=== PATIENT | female | born 1965 | race Caucasian/White ===

== ENCOUNTER 2016-07-14 00:07 | Inpatient (IN) ==
[2016-07-14 00:38] LABS: Basophils % 0.4 %; Eosinophils # 0.1 K/mcL (0.0-0.6); Eosinophils % 0.8 %; Hematocrit 38.7 % (35.3-44.9); Hemoglobin 12.8 g/dL (11.5-15.4); Immature Granulocytes % 0.4 % (0-4); Lymphocytes # 0.7 K/mcL (0.6-4.6); Lymphocytes % 8.1 %; Mean Corpuscular HGB Conc 33.1 g/dL (31.6-35.5); Mean Corpuscular Hemoglobin 27.2 pg (28.0-33.3); Mean Corpuscular Volume 82.2 fL (83.0-100.0); Mean Platelet Volume 10.3 fL (9.4-12.4); Monocytes # 0.7 K/mcL (0.0-1.3); Monocytes % 7.8 %; Platelet Count 215 K/mcL (140-400); Red Blood Count 4.71 M/mcL (3.82-4.97); Red Cell Distribution Width 13.2 % (11.5-14.5); Segmented Neutrophils % 82.5 %
[2016-07-14 00:44] LABS: INR 1.2; Prothrombin Time 12.9 Seconds (9.4-12.1)
[2016-07-14 00:47] LABS: Activated Partial Thrombo Time 18.7 Seconds (26.0-36.0)
--- NOTE | 2016-07-14 00:48 | Emergency Department Note ---
Disposition Clinical Impression: Chest pain Qualifiers: Chest pain type: unspecified Qualified Code(s): R07.9 - Chest pain, unspecified Disposition: Admitted As Inpatient Condition: Good Referrals: Antonietta Busch CNP [Primary Care Provider] - Forms: ED Satisfaction Letter Time of Disposition: 00:49 General Adult HPI - General Chief complaint: ED Chest Pain Stated complaint: CP Time Seen by Provider: 07/14/16 00:15 Source: patient Limitations: no limitations Nursing Notes Reviewed: Yes Vital Signs Reviewed: Yes - History of Present Illness HPI Narrative: Subjective fever today. Exertional chest pain or shortness of breath over a week. No vomiting or diarrhea. She is for urinary tract infection weaker. No abdominal pain to palpation at this time. No flank pain. Stress test in the fall was unremarkable. Pain in her chest abdomen radiating to her left shoulder with exertion. No pain at the time of my evaluation Location: chest Radiation: extremity Pain Severity: mild Pain Scale: 2 Quality: aching Consistency: intermittent Improves with: nothing Worsens with: nothing Associated symptoms: Reports: chest pain. Denies: confusion, diaphoresis, nausea/vomiting - Related Data Home Medications Medication Instructions Recorded Confirmed Amlodipine Besylate 10 mg PO DAILY 07/04/16 07/04/16 Amoxicillin [Amoxil] 500 mg PO 1-3XD 07/04/16 07/04/16 Hydrochlorothiazide 25 mg PO DAILY 07/04/16 07/04/16 Metoprolol Tartrate 50 mg PO 1-2XD 07/04/16 07/04/16 Previous Rx's Medication Instructions Recorded Sulfamethoxazole/Trimeth DS 1 each PO BID #20 tablet 07/04/16 [Bactrim DS] Allergies Allergy/AdvReac Type Severity Reaction Status Date / Time dexamethasone [From Decadron] Allergy Anaphylaxis Verified 07/04/16 21:03 Constitutional: Denies: fever, chills, weakness, weight change Eyes: Denies: eye pain, eye discharge, vision change ENT ED: Denies: ear pain, throat pain, dental pain, hearing loss, epistaxis, congestion, dysphagia Cardiovascular: Reports: chest pain Respiratory: Reports: dyspnea Gastrointestinal: Denies: abdominal pain, nausea, vomiting, diarrhea, constipation, hematemesis, melena, hematochezia Genitourinary: Denies: dysuria, frequency, hematuria, discharge Musculoskeletal: Denies: back pain, neck pain, arthralgia, myalgia Integumentary: Denies: rash, abrasion, lesions Neurological: Denies: headache, weakness, numbness, paresthesias, confusion, abnormal gait, vertigo Psychiatric: Denies: anxiety, depression, suicidal thoughts, homicidal thoughts , auditory hallucinations, visual hallucinations Endocrine: Denies: fatigue Hematological/Lymphatic: Denies: easy bleeding, easy bruising Allergic/Immunologic: Denies: facial swelling, urticaria Past Medical History - Past Medical History Medical history: Reports: hypertension Psychiatric history: Reports: anxiety, depression [employer] history: Reports: bilateral tubal ligation - Social History Smoking Status: Never smoker Smokeless Tobacco Status: No Alcohol use: Reports: none Drug use: Reports: none Physical Exam - General Limitations: no limitations General appearance: alert - Respiratory Respiratory exam: Present: wheezes. Absent: respiratory distress - Psychiatric Psychiatric exam: Present: anxious. Absent: agitated Course Course Narrative: No pain on admission, hr improved; no dynamic ekg changes; urinalysis ordered Accepting physician evaluated pt in the ER prior to admission Vital Signs Temperature 100.2 F H 07/14/16 00:10 Pulse Rate 115 07/14/16 00:10 Respiratory Rate 16 07/14/16 00:10 Blood Pressure 135/99 07/14/16 00:10 O2 Sat by Pulse Oximetry 96 07/14/16 00:10 Temperature 100.2 F H 07/14/16 00:10 Pulse Rate 109 07/14/16 01:05 Respiratory Rate 16 07/14/16 00:10 Blood Pressure 130/78 07/14/16 01:05 O2 Sat by Pulse Oximetry 96 07/14/16 01:05 Oxygen Delivery Oxygen Delivery Room Air Medical Decision Making - Lab Data Result diagrams: 07/14/16 00:30 07/14/16 00:30 Lab Results 07/14/16 07/14/16 07/14/16 Range/Units 00:30 00:30 00:30 WBC 8.5 (4.3-11.1) K/mcL RBC 4.71 (3.82-4.97) M/mcL Hgb 12.8 (11.5-15.4) g/dL Hct 38.7 (35.3-44.9) % MCV 82.2 L (83.0-100.0) fL MCH 27.2 L (28.0-33.3) pg MCHC 33.1 (31.6-35.5) g/dL RDW 13.2 (11.5-14.5) % Plt Count 215 (140-400) K/mcL MPV 10.3 (9.4-12.4) fL Immature Gran % 0.4 (0-4) % Seg Neutrophils % 82.5 % Lymphocytes % 8.1 % Monocytes % 7.8 % Eosinophils % 0.8 % Basophils % 0.4 % Neutrophils # 7.0 (1.6-8.9) K/mcL Lymphocytes # 0.7 (0.6-4.6) K/mcL Monocytes # 0.7 (0.0-1.3) K/mcL Eosinophils # 0.1 (0.0-0.6) K/mcL Basophils # 0.0 (0.0-0.2) K/mcL PT 12.9 H (9.4-12.1) Seconds INR 1.2 APTT 18.7 L (26.0-36.0) Seconds Sodium (136-145) mEq/L Potassium (3.5-4.5) mEq/L Chloride (98-109) mEq/L Carbon Dioxide (19-29) mEq/L BUN (7-20) mg/dL Creatinine (0.57-1.11) mg/dL Est GFR ( Amer) (> 60) Est GFR (Non-Af Amer) (> 60) BUN/Creatinine Ratio (6-26) Glucose (70-99) mg/dL Calculated Osmolality (280-300) Calcium (8.6-10.8) mg/dL Troponin I (0-0.03) ng/mL B-Natriuretic Peptide 58 (0-100) pg/mL 07/14/16 07/14/16 Range/Units 00:30 00:30 WBC (4.3-11.1) K/mcL RBC (3.82-4.97) M/mcL Hgb (11.5-15.4) g/dL Hct (35.3-44.9) % MCV (83.0-100.0) fL MCH (28.0-33.3) pg MCHC (31.6-35.5) g/dL RDW (11.5-14.5) % Plt Count (140-400) K/mcL MPV (9.4-12.4) fL Immature Gran % (0-4) % Seg Neutrophils % % Lymphocytes % % Monocytes % % Eosinophils % % Basophils % % Neutrophils # (1.6-8.9) K/mcL Lymphocytes # (0.6-4.6) K/mcL Monocytes # (0.0-1.3) K/mcL Eosinophils # (0.0-0.6) K/mcL Basophils # (0.0-0.2) K/mcL PT (9.4-12.1) Seconds INR APTT (26.0-36.0) Seconds Sodium 137 (136-145) mEq/L Potassium 3.8 (3.5-4.5) mEq/L Chloride 105 (98-109) mEq/L Carbon Dioxide 21 (19-29) mEq/L BUN 20 (7-20) mg/dL Creatinine 1.22 H (0.57-1.11) mg/dL Est GFR ( Amer) 57 L (> 60) Est GFR (Non-Af Amer) 47 L (> 60) BUN/Creatinine Ratio 16 (6-26) Glucose 130 H (70-99) mg/dL Calculated Osmolality 288 (280-300) Calcium 9.5 (8.6-10.8) mg/dL Troponin I 0.05 H* (0-0.03) ng/mL B-Natriuretic Peptide (0-100) pg/mL - EKG Data EKG #1 EKG attestation: Yes I reviewed and interpreted this EKG. EKG results narrative: Normal sinus rhythm. No acute injury pattern. Nonspecific changes noted on today's EKG and prior EKG from leads V5 and V6.
[2016-07-14 00:54] LABS: Calcium 9.5 mg/dL (8.6-10.8); Potassium 3.8 mEq/L (3.5-4.5)
[2016-07-14] MEDS ORDERED: Aspirin 325 MG TABLET PO ONE (01:07)
[2016-07-14] MEDS ORDERED: Ondansetron 4 MG/2 ML VIAL IVP PRN (04:48)
[2016-07-14] MEDS ORDERED: *HR* Morphine 2 MG/ML SYRINGE IVP PRN (04:48)
[2016-07-14] MEDS ORDERED: Nitroglycerin 0.4 MG TAB.SUBL SL PRN (04:48)
--- NOTE | 2016-07-14 04:48 | Event Note ---
Date of Encounter: 07/14/16 Time of Encounter: 04:42 Patient seen and examined with a medical office asst. Agree with the assessment and plan. Patients with risk factors for coronary artery disease including a very strong family history of premature coronary disease mother had cabg at the age of 40 presents to the emergency room today with one week of typical anginal chest pain. Pain occurs with exertion forcing her to stop after which patient start noticing relief within a few minutes. Tonight she had a prolonged episode pain lasting for 2 hours prompting her to come to the emergency room further management. Her electrocardiogram shows .[address] segment depression. Initial troponin all .05. She had evaluation for coronary disease 5 month ago because of enter scapular pain. Patient will need to coronary angiogram to load coronary artery disease. With as disability counselor service to see the patient. Patient will be started on anti-ischemic medications including aspirin beta blockers to target the heart rate of 55 to 60 , in addition to full dose anticoagulation with heparin. Patient was recently diagnosed with a urinary tract infection a week ago and was having Donald hematuria. This has resolved after initiating antibiotics. She has been on Bactrim for one week. Hematuria stopped a day after initiating antibiotics. Still has some urinary symptoms in addition to fever. Tmax was 100.2 in the emergency room. Check your analysis on culture. Patient will be started on ceftriaxone. She is having pain in the right side of the abdomen but no loin pain. CT scanner with abdomen and pelvis without contrast will be performed tomorrow to rule out obstructive uropathy. Till election monitoring inpatient admission focal
[2016-07-14] MEDS ORDERED: *HR* Heparin 5,000 UNIT/ML VIAL IVP ONE (05:00)
[2016-07-14] MEDS ORDERED: *HR* Heparin 5,000 UNIT/ML VIAL IVP PRN ×2 (05:00)
[2016-07-14] MEDS ORDERED: Heparin 25,000 UNIT/500 ML D5W 25,000 UNIT/500 ML MLS IVC SCH (05:00)
--- NOTE | 2016-07-14 05:24 | Internal Med History&Physical ---
Date of Encounter: 07/14/16 Time of Encounter: 15:00 Assessment and Plan (1) NSTEMI (non-ST elevated myocardial infarction) Current visit: Yes Status: Acute Patient presents with typical Anginal chest pain relieved with rest, ASA, and nitroglycerin. Has strong family history of heart disease. EKG reviewed: shows sinus tachycardia with .5mm ST depression in inferolateral leads. MARCE score: 4: initial troponin: .05- will trend Q6HR Patient placed on Heparin drip. Started ASA, statin, BB, morphine, SL nitroglycerin PRN Lipid panel pending. Repeat EKG in morning. Patient is NPO except meds in case of cardiology interventions. Consult to cardiology. (2) Chest pain Current visit: Yes Status: Acute plan as above. Qualifiers: Chest pain type: chest pain due to myocardial ischemia Ischemic chest pain type: stable angina pectoris Qualified Code(s): I20.8 - Other forms of angina pectoris (3) PERRI (acute kidney injury) Current visit: Yes Status: Acute Patient's Cr today measured at 1.22. Baseline is normal. Patient states that about a week ago, she had lower abdominal pain with blood clots in her urine. Was diagnosed on UTI, put on bactrim. Physical exam negative for lower abdominal or costovertebral tenderness. Etiology could be multifactorial from UTI- consider obstructive uropathy secondary to kidney stones as well. Urinalysis with culture pending. Will empirically treat with ceftriaxone 1g Qday. CT abdomen/pelvis without contrast pending to look for stones or obstructive uropathy. infusing 1L total normal saline at 80 ml/hr COntinue to monitor. Avoid nephrotoxic agents. hold HCTZ. (4) UTI (urinary tract infection) Current visit: Yes Status: Acute plan as above Qualifiers: Urinary tract infection type: site unspecified Hematuria presence: with hematuria Qualified Code(s): N39.0 - Urinary tract infection, site not specified; R31.9 - Hematuria, unspecified (5) Hematuria Current visit: Yes Status: Acute plan as above. (6) HTN (hypertension) Current visit: Yes Status: Acute continue HCTZ, amlodipine once home med list confirmed. Qualifiers: Hypertension type: essential hypertension Qualified Code(s): I10 - Essential (primary) hypertension (7) HLD (hyperlipidemia) Current visit: Yes Status: Acute statin Qualifiers: Hyperlipidemia type: unspecified Qualified Code(s): E78.5 - Hyperlipidemia , unspecified (8) DVT prophylaxis Current visit: Yes Status: Acute Heparin Drip Internal Medicine - H&P: HPI Chief complaint: chest pain Admitted From: Emergency Dept Plans for Post Hospital Care: Home History of present illness: PCP: Antonietta Busch Ms. Kunz is a 50 year old female with PMHx of HLD, HTN. Patient came in with CC of typical anginal chest pain that started about one week ago. She also feels like she has a lot of pressure in her chest. She never had anything like this before. She rates the pain as 10/10, and her pain is located in mid-chest, as well as left shoulder pain. 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 Going from inside to the cold weather outside causes her to have pain as well. Her pain is relieved when she sits down to rest. When she called the squad, she received 4 aspirin 2 nitroglycerin, and her pain went from 10/10 to 2/10. Upon examination, she was chest pain free. She has a strong family Hx of heart disease, her mother had her first MO at age 40 and had bypass surgery at that time, she also had carotid stent placement. Patient also states that she had symptoms of a UTI that started about 1 week ago with gross blood clots when she urinates. Her doctor started her on bactrim for the UTI. She denies any history of kidney stones. Family History: mother is alive, had MO at 40 with bypass. Also had carotid stent placement. Dad is alive, has HTN, COPD Social Hx: Lives at home with her and son. Doesn't smoke or drink. Denies illicit drug use. Surgical Hx: had tubal ligation 22 years ago. Had hysteroscopy for endometriosis about 20 years ago. Past Med Surg Social Fam HX - Past Medical History Medical history: hypertension Psychiatric history: anxiety, depression - Social History Smoking Status: Never smoker Smokeless Tobacco Status: No Alcohol use: none Drug use: none Internal Medicine - H&P: Meds Amlodipine Besylate 10 mg PO DAILY 07/04/16 [History] Amoxicillin [Amoxil] 500 mg PO 1-3XD 07/04/16 [History] Hydrochlorothiazide 25 mg PO DAILY 07/04/16 [History] Metoprolol Tartrate 50 mg PO 1-2XD 07/04/16 [History] Sulfamethoxazole/Trimeth DS [Bactrim DS] 1 each PO BID #20 tablet 07/04/16 [Rx] Allergies dexamethasone [From Decadron] Allergy (Verified 07/04/16 21:03) Anaphylaxis All Systems PM: A 10-system review of systems was performed and is negative for pertinent findings except as documented above in the HPI. - Constitutional Constitutional: chills, fatigue, fever(s), lethargy - EENT Eyes: no blurry vision - Cardiovascular Cardiovascular ROS IM: chest pain, no syncope - Respiratory Respiratory: cough - Gastrointestinal Gastrointestinal: no abdominal pain - Genitourinary Genitourinary: hematuria - Neurological Neurological ROS: no abnormal gait, no abnormal speech - Constitutional Vitals: Temp Pulse Resp BP Pulse Ox 100.2 F H 109 16 130/78 96 07/14/16 00:10 07/14/16 01:05 07/14/16 00:10 07/14/16 01:05 07/14/16 01:05 General appearance: Present: A&O X 3, pleasant, no acute distress, answers questions appropriately - Head Head exam: Present: atraumatic, normocephalic - Neck Neck exam general surgery: Present: supple, trachea midline - Respiratory Respiratory exam: Present: CTAB. Absent: rales, rhonchi, wheezes - Cardiovascular Cardiovascular exam: Present: tachycardia - GI/Abdominal GI/Abdominal exam: Present: normal bowel sounds, soft. Absent: guarding, tenderness - Extremities Exam Extremities exam: Absent: cyanotic, pedal edema - Back Exam Back exam: Absent: CVA tenderness (L), CVA tenderness (R) - Neurological Exam Neurological exam: Present: alert, oriented X3, no focal deficits. Absent: speech deficit - Psychiatric Psychiatric exam: Present: anxious Internal Med - H&P Results - Labs CBC & Chem 7: 07/14/16 00:30 07/14/16 00:30 Labs: Short CBC 07/14/16 Range/Units 00:30 WBC 8.5 (4.3-11.1) K/mcL Hgb 12.8 (11.5-15.4) g/dL Hct 38.7 (35.3-44.9) % Plt Count 215 (140-400) K/mcL Neutrophils # 7.0 (1.6-8.9) K/mcL BMP 07/14/16 00:30 Sodium 137 Potassium 3.8 Chloride 105 Carbon Dioxide 21 BUN 20 Creatinine 1.22 H Glucose 130 H Calcium 9.5 Cardiac Enzymes 07/14/16 Range/Units 00:30 Troponin I 0.05 H* (0-0.03) ng/mL - Impressions ITS Impressions Chest X-Ray 07/14/16 00:21 IMPRESSION: Normal portable chest examination. D/ / Eliazar Gee MD / Eliazar Gee MD Interpreting Provider: Eliazar Gee MD Chest CTA 07/14/16 02:26 IMPRESSION: No evidence of pulmonary embolism or acute pulmonary abnormality. D/ / Crow Ladd MD / Crow Ladd MD Interpreting Provider: Crow Ladd MD
[2016-07-14] MEDS ORDERED: 0.9 % Sodium Chloride 1,000 ML IVC SCH (05:39)
[2016-07-14 06:36] LABS: Bilirubin,Urine Negative (Negative); Blood,Urine Small (Negative); Clarity,Urine Cloudy (Clear); Color,Urine Orange (Yellow); Glucose,Urine (UA) Normal (Normal); Ketones,Urine Negative (Negative); Leukocyte Esterase,Urine Moderate (Negative); Nitrite,Urine Positive (Negative); PH,Urine 6.5 pH Units (5.0-8.0); Protein,Urine 30 mg/dL (Neg-Trace); Specific Gravity,Urine > 1.030 (1.010-1.025); Urobilinogen,Urine Normal (Normal)
[2016-07-14 06:38] LABS: Bacteria,Urine Many per hpf (None-Few); Hyaline Casts,Urine None Seen per lpf (None-Few); RBC,Urine 15-30 per hpf (0-3); Squamous Epithelial Cell,Urine Many per lpf (None-Few); WBC,Urine TNTC per hpf (0-3)
--- NOTE | 2016-07-14 08:52 | Cardiology Consult Note ---
Date of Encounter: 07/14/16 Time of Encounter: 08:52 Assessment and Plan (1) Elevated troponin Current Visit: Yes Status: Acute - mildly elevated troponin 0.05 --> 0.06 in the setting of UTI/PERRI Cr 1.22 - patient is currently chest pain free - risk factors include hypertension and family history of cardiac disease - likely due to demand ischemia but continue to trend troponin and repeat an EKG - continue on low dose heparin - ASA, BB, statin - repeat ECHO (2) PERRI (acute kidney injury) Current Visit: Yes Status: Acute - Cr 1.22, baseline is 1.0 - possibly secondary to UTI or renal stones - continue to monitor and avoid nephrotoxic agents - BP 130s, ok to hold HCTZ (3) HTN (hypertension) Current Visit: Yes Status: Acute - continue home BP medications, BP 130s - HR 80s Qualifiers: Hypertension type: essential hypertension Qualified Code(s): I10 - Essential (primary) hypertension Discussion w patient/family: The assessment and plan as outlined above was discussed with the patient and/or family members who expressed understanding and agreement. All questions were answered. Thank you for involving us in the care of your patient. Please call with any questions. History of Present Illness Consult date: 07/14/16 Requesting physician: Kalpesh Perez Consult reason: CP Chief complaint: CP History of present illness: Ms. Kunz is a 50 year old female with past medical history of hypertension presents to the ED for chest pain. Cardiology consulted for chest pain r/o ACS with mildly elevated troponin 0.05 in setting of UTI. Patient reports midsternal chest pressure that occurred around 2000 last night. Radiation to the left shoulder and scapula. Denies any associated shortness of breath, jaw pain, diaphoresis, or nausea. Pain was relieved after 324 aspirin and 2 nitroglycerin given by EMS. Reports similar episodes throughout the week usually exacerbated with the cold weather outside of lifting things. Describes similar sensation however typically better with rest. Over the past 2 weeks she has been treated with antibiotics and steroid taper for a "head cold" and symptoms began after 4th day of steroids. Also complains of dysuria and hematuria from a UTI. EKG does not reveal any acute ischemic changes. CTA of chest does not reveal dissection or PE. History of normal nuclear stress test and echocardiogram 02/2016. Denies history of cardiac ischemic disease. Family history of OH in mother with bypass and carotid stenting. She denies any tobacco use. Compliant with her home medications but BP sometimes runs high and lately has been feeling her HR jump to the 140s. Denies history of atrial fibrillation or arrhythmias. Important CV studies: - Stress nuclear 02/25/16 - non-diagnostic due to ST-T changes but no signs of ischemia or infarct - TTE echo 02/25/16 - EF 60-65% with normal LV function, without signs of pulmonary HTN or valvular dysfunction - no [facility] Past Med Surg Social Fam HX - Past Medical History Medical history: hypertension Psychiatric history: anxiety, depression - Past Surgical History Surgical History: no surgical history - Social History Smoking Status: Never smoker Smokeless Tobacco Status: No Alcohol use: none Drug use: none - Family History Mother Hx Family Cardiac Disorders: Yes (CARDIAC DISEASE.) Father Hx Family Respiratory Disorders: Yes (COPD.) Medications and Allergies Amlodipine Besylate 10 mg PO DAILY 07/04/16 [History] Hydrochlorothiazide 25 mg PO DAILY 07/04/16 [History] Metoprolol Tartrate 75 mg PO BID 07/04/16 [History] Sulfamethoxazole/Trimeth DS [Bactrim DS] 1 each PO BID #20 tablet 07/04/16 [Rx] Allergies dexamethasone [From Decadron] Allergy (Verified 07/04/16 21:03) Anaphylaxis All Systems Review: A 10-system review of systems was performed and is negative for pertinent findings except as documented above in the HPI. - Constitutional Constitutional: chills, fever(s) (SUBJECTIVE), no fatigue - Cardiovascular Cardiovascular: as per HPI, chest pain with exertion, rapid heart rate, no claudication, no diaphoresis, no dyspnea at rest, no dyspnea on exertion, no lightheadedness, no palpitations - Respiratory Respiratory: no cough, no dyspnea - Genitourinary Genitourinary: dysuria, hematuria Physical Examination Vital Signs, Last 4 Hours Temp Pulse Resp BP Pulse Ox 07/14/16 07:10 98.2 F 81 17 124/79 97 07/14/16 06:50 98.2 F 83 16 130/85 97 07/14/16 05:33 18 142/97 General: Conversant, No Apparent Distress HEENT: Atraumatic, Normocephaly, Mucus Membranes Moist Neck: No JVD, Normal carotid pulses Cardiac: Reg Rate and Rhythm, Normal S1 and S2, No Murmur Lungs: Normal Breath Sounds, No Wheeze, Rales, Rhonchi Neuro: Alert and responsive, No focal deficits noted Abdomen: Soft, Non-Tender Skin: No rashes noted on visualized skin Musculoskeletal: No Chest Wall Tenderness Extremities: No Clubbing, No Cyanosis, No Edema, Normal Pulses Results 07/14/16 00:30 07/14/16 00:30 - Imaging and Cardiology Chest Xray: report reviewed, image reviewed Stress Test: report reviewed Echo: pending, report reviewed - EKG Interpretation EKG results cardiology: personally reviewed, normal ECG, sinus rhythm, no diagnostic ischemia Consult Discharge Plan - Plan Referrals: Antonietta Busch, HORTICULTURAL NURSERY ASSISTANT [Primary Care Provider] -
[2016-07-14] MEDS: Aspirin 81 MG TAB.CHEW PO SCH (08:54)
[2016-07-14 11:40] LABS: Chol/HDL Ratio 5.1 (0-4.9)
--- NOTE | 2016-07-14 15:47 | Urology - Consult Note ---
Date of Encounter: 07/14/16 Time of Encounter: 15:45 - Assessment and Plan (1) Ureteral stone with hydronephrosis Current Visit: Yes Status: Acute Assessment and plan: I suspect that the ureteral stone with hydronephrosis combined with a UTI and potential sepsis is the cause of her elevated troponins and recent illness. She is going to need surgical intervention during this hospitalization. We will attempt a ureteroscopic stone extraction but if there is evidence of purulence or it required significant manipulation to remove the stone a stent will be placed in the stone extraction will be staged. I discussed the case with Dr. Lira. He is still following the patient for the elevated troponins and potential cardiac issues. We discussed her possible need for a cardiac catheter. He is awaiting the final troponin levels and echocardiogram results. If these results are okay may be able to proceed without the need for a cardiac catheter. We will likely proceed with the stone extraction and stent placement tomorrow. Continue IV fluids and antibiotics. (2) UTI (urinary tract infection) Current Visit: Yes Status: Acute Qualifiers: Urinary tract infection type: site unspecified Hematuria presence: with hematuria Qualified Code(s): N39.0 - Urinary tract infection, site not specified; R31.9 - Hematuria, unspecified Urology CN:HPI Consult date: 07/14/16 Reason for consult Urology: Other History of present illness: 50 yo admitted with generalized illness. troponins elevated. gross hematuria. CT scan revealed a 7 mm mid ureteral stone with hydronephrosis. UA +. low grade temps. Past Med Surg Social Fam HX - Past Medical History Medical history: hypertension Psychiatric history: anxiety, depression - Past Surgical History Surgical History: no surgical history - Social History Smoking Status: Never smoker Smokeless Tobacco Status: No Alcohol use: none Drug use: none - Family History Mother Hx Family Cardiac Disorders: Yes (CARDIAC DISEASE.) Father Hx Family Respiratory Disorders: Yes (COPD.) Medications and Allergies Amlodipine Besylate 10 mg PO DAILY 07/04/16 [History] Hydrochlorothiazide 25 mg PO DAILY 07/04/16 [History] Metoprolol Tartrate 75 mg PO BID 07/04/16 [History] Sulfamethoxazole/Trimeth DS [Bactrim DS] 1 each PO BID #20 tablet 07/04/16 [Rx] Allergies dexamethasone [From Decadron] Allergy (Verified 07/04/16 21:03) Anaphylaxis Review of Systems - Constitutional fever(s), malaise - EENT Nose, mouth and throat: no dizziness - Cardiovascular no chest pain - Respiratory no cough - Gastrointestinal abdominal pain, nausea - Genitourinary Genitourinary: hematuria - Musculoskeletal back pain - Integumentary no erythema - Neurological no confusion - Psychiatric no anxiety - Hematologic/Lymphatic easy bleeding - Allergic/Immunologic no throat swelling Exam Initial Vital Signs Temp Pulse Resp BP Pulse Ox 100.2 F H 115 16 135/99 96 07/14/16 00:10 07/14/16 00:10 07/14/16 00:10 07/14/16 00:10 07/14/16 00:10 - General physical appearance Present: well developed, no distress - Eyes Present: PERRL - ENT Present: normal nares - Neck Present: no masses - Respiratory Present: normal respiratory effort - Cardiovascular Cardiovascular exam IM: RRR - Abdomen Abdomen: Present: soft - Integumentary Present: no rash - Neurologic Present: normal coordination. Absent: disoriented, confused - Musculoskeletal Present: normal gait Urology Results - Labs 07/14/16 00:30 07/14/16 00:30 Abnormal lab results MCV 82.2 fL (83.0-100.0) L 07/14/16 00:30 MCH 27.2 pg (28.0-33.3) L 07/14/16 00:30 PT 12.9 Seconds (9.4-12.1) H 07/14/16 00:30 APTT 71.0 Seconds (26.0-36.0) H D 07/14/16 12:41 Creatinine 1.22 mg/dL (0.57-1.11) H 07/14/16 00:30 Est GFR ( Amer) 57 (> 60) L 07/14/16 00:30 Est GFR (Non-Af Amer) 47 (> 60) L 07/14/16 00:30 Glucose 130 mg/dL (70-99) H 07/14/16 00:30 LDL Cholesterol, Calc 136 mg/dL (0-99) H 07/14/16 06:31 HDL Cholesterol 36 mg/dL (40-59) L 07/14/16 06:31 Cholesterol/HDL Ratio 5.1 (0-4.9) H 07/14/16 06:31 Urine Color [place] (Yellow) A 07/14/16 06:15 Urine Clarity Cloudy (Clear) A 07/14/16 06:15 Ur Specific [place] > 1.030 (1.010-1.025) H 07/14/16 06:15 Urine Protein 30 mg/dL (Neg-Trace) H 07/14/16 06:15 Urine Blood Small (Negative) H 07/14/16 06:15 Urine Nitrite Positive (Negative) A 07/14/16 06:15 Ur Leukocyte Esterase Moderate (Negative) H 07/14/16 06:15 Urine Microscopic RBC 15-30 per hpf (0-3) H 07/14/16 06:15 Urine Microscopic WBC TNTC per hpf (0-3) H 07/14/16 06:15 Ur Squamous Epith Cells Many per lpf (None-Few) H 07/14/16 06:15 Urine Bacteria Many per hpf (None-Few) H 07/14/16 06:15 Ur Culture Indicated? YES (NO) A 07/14/16 06:15 Diabetes panel 07/14/16 Range/Units 06:31 Triglycerides 63 (< 150) mg/dL HDL Cholesterol 36 L (40-59) mg/dL All other labs normal. Consult Discharge Plan - Plan Referrals: Antonietta Busch, MELECIO [Primary Care Provider] -
--- NOTE | 2016-07-14 16:00 | Internal Med Progress Note ---
Date of Encounter: 07/14/16 Time of Encounter: 10:00 - Assessment and plan (1) Chest pain Current Visit: Yes Status: Acute Assessment and plan: Patient has a family history of CAD. She has risk factor of hypertension and hyperlipidemia. Need to rule out ACS. First of 2 troponin positive. However, the third troponin trended down. Cardiology is on case and recommendation will follow. Patient is at high risk because she is on heparin drip, needed close monitoring. Qualifiers: Chest pain type: chest pain due to myocardial ischemia Ischemic chest pain type: stable angina pectoris Qualified Code(s): I20.8 - Other forms of angina pectoris (2) Elevated troponin Current Visit: Yes Status: Acute Assessment and plan: Cardiology consult saw Patient. Most likely demand ischemia. Troponin trended down now (3) HLD (hyperlipidemia) Current Visit: Yes Status: Acute Assessment and plan: Continue simvastatin treatment Qualifiers: Hyperlipidemia type: unspecified Qualified Code(s): E78.5 - Hyperlipidemia , unspecified (4) HTN (hypertension) Current Visit: Yes Status: Acute Assessment and plan: BP is stable. Hold BP medications now since blood pressure is not high. Qualifiers: Hypertension type: essential hypertension Qualified Code(s): I10 - Essential (primary) hypertension (5) UTI (urinary tract infection) Current Visit: Yes Status: Acute Assessment and plan: Patient has ureteral stone and UTI. On Rocephin IV. Qualifiers: Urinary tract infection type: site unspecified Hematuria presence: with hematuria Qualified Code(s): N39.0 - Urinary tract infection, site not specified; R31.9 - Hematuria, unspecified (6) Ureteral stone with hydronephrosis Current Visit: Yes Status: Acute Assessment and plan: Urology consult saw patient. Plan for stone removal tomorrow morning (7) DVT prophylaxis Current Visit: Yes Status: Acute Assessment and plan: Patient is on heparin drip - Subjective Interval history: Patient is a 50-year-old female admitted for chest pain. Her past medical history is significant for hypertension and hyperlipidemia. Patient also complaining recent hematuria and was treated as UTI. Patient was seen and examined. She has no chest pain when I saw her. In no acute distress. No fever, vital signs stable. 3 sets of troponin 0.05, 0.06, 0.03. Cardiology consult saw Patient, will continue closely monitor and a follow-up echo result. Abdominal CT shows ureter stone with Rt moderate hydronephrosis. Urology consult saw patient. Plan for urology procedure to remove stone tomorrow morning. We will continue Rocephin to treat UTI. - Constitutional Vitals: Temp Pulse Resp BP Pulse Ox 99.8 F H 92 18 120/76 94 L 07/14/16 15:17 07/14/16 15:17 07/14/16 15:17 07/14/16 15:17 07/14/16 15:17 General appearance: Present: A&O X 3, pleasant, no acute distress, answers questions appropriately - Head Head exam: Present: atraumatic, normocephalic - Eye Eye exam: Present: PERRL, conjuntiva pink, sclera anicteric Pupils: Present: PERRL - Neck Neck exam general surgery: Present: supple, trachea midline. Absent: lymphadenopathy - Respiratory Respiratory exam: Present: CTAB. Absent: accessory muscle use, rales, rhonchi, wheezes - Cardiovascular Cardiovascular exam: Present: RRR, +S1, +S2. Absent: diastolic murmur, gallop, rubs, systolic murmur - GI/Abdominal GI/Abdominal exam: Present: normal bowel sounds, soft, tenderness (Mild tenderness on right-sided), no peritoneal signs. Absent: distended - Extremities Exam Extremities exam: Present: warm, radial pulses palpable and symetrical. Absent : calf tenderness, cyanotic, pedal edema - Neurological Exam Neurological exam: Present: CN II-XII intact, oriented X3, no focal deficits. Absent: pronater drift, facial droop, speech deficit - Skin Skin exam: Present: dry, intact Internal Medicine: Result - Labs CBC & Chem 7: 07/14/16 00:30 07/14/16 00:30 Labs: Cardiac Enzymes 07/14/16 07/14/16 Range/Units 06:31 12:41 Troponin I 0.06 H* 0.03 (0-0.03) ng/mL Urine 07/14/16 Range/Units 06:15 Urine Color [place] A (Yellow) Urine Clarity Cloudy A (Clear) Urine pH 6.5 (5.0-8.0) pH Units Ur Specific [place] > 1.030 H (1.010-1.025) Urine Protein 30 H (Neg-Trace) mg/dL Urine Glucose (UA) Normal (Normal) mg/dL - ABG Interpretation ABG results: PT/INR, D-dimer PT 12.9 Seconds (9.4-12.1) H 07/14/16 00:30 - Impressions Impressions Abdomen/Pelvis CT 07/14/16 09:15 IMPRESSION: 1. Moderate right renal hydronephrosis with three stones within the mid to distal ureter measuring up to 7.4 mm. D/ : / 07/14/2016 11:14:58 Luis Marino MD / norm Interpreting Provider: Luis Marino MD Consult Discharge Plan - Plan Referrals: Antonietta Busch, FINANCIAL ANALYST [Primary Care Provider] -
--- NOTE | 2016-07-14 16:17 | Electrocardiograph Report ---
[place] [id number] Test Date: 2016-07-14 Pat Name: Olivia Kunz Department: 105 Room: 3B Gender: F [employer]: : 1965 Requested By: Aldair Braun Order Number: [id number] Reading MD: Benedicto Lira Measurements Intervals [place] Rate: 111 P: 38 FL: 108 QRS: 24 QRSD: 81 T: 47 QT: 294 QTc: 360 Interpretive Statements SINUS TACHYCARDIA POSSIBLE LEFT ATRIAL ENLARGEMENT NONSPECIFIC ST \T\ T-WAVE ABNORMALITY ABNORMAL RHYTHM ECG Electronically Signed On 07-14-2016 16:15:12 EST by Benedicto Lira
--- NOTE | 2016-07-14 19:06 | Anesthesia Evaluation PreOp ---
Date of Encounter: 07/14/16 Time of Encounter: 19:03 - Past History Planned Operation: Right ureteral stone extraction Cardiac History: HTN, Hyperlipidemia, Arrhythmia (on Hep drip per cardiology, Cleared for sx) Pulmonary History: Denies Any Significant HX COUNTY ATTORNEY History: Other (Anxiety/Depression) Other Medical History: Renal (Acute kidney injury), Other (Elevaterd troponin - Most likelyCleared by cardiology) Anesthesia History: Past Anesthesia (None) Alcohol Use: none Drug use: none Medications and Allergies Amlodipine Besylate 10 mg PO DAILY 07/04/16 [History] Hydrochlorothiazide 25 mg PO DAILY 07/04/16 [History] Metoprolol Tartrate 75 mg PO BID 07/04/16 [History] Sulfamethoxazole/Trimeth DS [Bactrim DS] 1 each PO BID #20 tablet 07/04/16 [Rx] Allergies dexamethasone [From Decadron] Allergy (Verified 07/04/16 21:03) Anaphylaxis - Meds/Allergy Pre-op Review Medications Reviewed: Yes Allergies Reviewed: Yes Beta Blockers on Current Med List: Yes If Beta Blockers taken, Date/Time (Last Dose taken): 07/14 05:30 Currently will needs 2/10 dose Anesthesia Results - Labs 07/14/16 00:30 07/14/16 00:30 Stress 02/25/16 EF- 70% No ischemia Echo 02/25/16 EF-60-65% No p HTN No significant valvular dx - Imaging EKG: image reviewed (ST with short OR interval) Anesthesia Exam O2 Sat Height 1.57 m Weight 69.4 kg O2 Sat by Pulse Oximetry 96 O2 Sat by Pulse Oximetry 94 O2 Sat by Pulse Oximetry 100 O2 Sat by Pulse Oximetry 97 O2 Sat by Pulse Oximetry 97 O2 Sat by Pulse Oximetry 97 O2 Sat by Pulse Oximetry 96 O2 Sat by Pulse Oximetry 96 Vital Signs Temp Pulse Resp BP Pulse Ox 100.2 F H 115 16 135/99 96 07/14/16 00:10 07/14/16 00:10 07/14/16 00:10 07/14/16 00:10 07/14/16 00:10 Vital Signs/O2 Sat, Most Current Temp Pulse Resp BP Pulse Ox 98.4 F 105 16 162/94 96 07/14/16 18:57 07/14/16 18:57 07/14/16 18:57 07/14/16 18:57 07/14/16 18:57 Height: 5'2'' Weight: 153# NPO (# of Hours): > 8 hrs Pain Scale: 0 Pain Scale Used: Numeric (1 - 10) - HEENT Pupil (Motor): Pupils equal, EOMI Mallampati: III Teeth: Normal Oral Opening: Greater than 3 - COUNTY ATTORNEY LOC: Oriented COUNTY ATTORNEY Motor: Normal RUE, Normal LUE, Normal RLE, Normal LLE, Normal Face COUNTY ATTORNEY Sensory: Normal: RUE, LUE, RLE, LLE, Face - Cardiac Rhythm: Regular Murmur: None JVD: No Carotid Bruit: No - Pulmonary Breath Sounds: bilateral Clear Respiratory Effort: Symmetrical Anesthesia Assess/Plan ASA Score: 2 Modified Nada Scale for Level of Consciousness: Cooperative, oriented, and tranquil Anesthetic Plan: General Autologous Blood: Yes Monitoring Plan: Standard Monitors Recovery Plan: PACU
[2016-07-15 04:42] LABS: Basophils % 0.6 %; Eosinophils # 0.1 K/mcL (0.0-0.6); Eosinophils % 1.8 %; Hematocrit 36.5 % (35.3-44.9); Hemoglobin 11.7 g/dL (11.5-15.4); Immature Granulocytes % 0.3 % (0-4); Lymphocytes # 1.6 K/mcL (0.6-4.6); Lymphocytes % 23.2 %; Mean Corpuscular HGB Conc 32.1 g/dL (31.6-35.5); Mean Corpuscular Hemoglobin 27.6 pg (28.0-33.3); Mean Corpuscular Volume 86.1 fL (83.0-100.0); Mean Platelet Volume 10.2 fL (9.4-12.4); Monocytes # 0.9 K/mcL (0.0-1.3); Monocytes % 12.6 %; Neutrophils # 4.2 K/mcL (1.6-8.9); Platelet Count 199 K/mcL (140-400); Red Blood Count 4.24 M/mcL (3.82-4.97); Red Cell Distribution Width 13.5 % (11.5-14.5); Segmented Neutrophils % 61.5 %
[2016-07-15 04:58] LABS: BUN/Creatinine Ratio 11 (6-26); Blood Urea Nitrogen 11 mg/dL (7-20); Calcium 9.1 mg/dL (8.6-10.8); Carbon Dioxide 25 mEq/L (19-29); Chloride 106 mEq/L (98-109); Glucose 118 mg/dL (70-99); Osmolality,Calculated 288 (280-300); Potassium 4.3 mEq/L (3.5-4.5); Sodium 139 mEq/L (136-145); eGFR For African Americans > 60 (> 60); eGFR For Non-African Americans > 60 (> 60)
--- NOTE | 2016-07-15 07:19 | Urology Progress Note ---
Date of Encounter: 07/15/16 Time of Encounter: 07:18 - Assessment and Plan (1) Ureteral stone with hydronephrosis Current Visit: Yes Status: Acute Assessment and plan: will confirm with cardiology but plan to proceed with stone extraction today. possibly at noon. (2) UTI (urinary tract infection) Current Visit: Yes Status: Acute Qualifiers: Urinary tract infection type: site unspecified Hematuria presence: with hematuria Qualified Code(s): N39.0 - Urinary tract infection, site not specified; R31.9 - Hematuria, unspecified Progress Note Narrative: based on chart pt stable overnight Objective Initial Vital Signs Temp Pulse Resp BP Pulse Ox 100.2 F H 115 16 135/99 96 07/14/16 00:10 07/14/16 00:10 07/14/16 00:10 07/14/16 00:10 07/14/16 00:10 - Labs 07/15/16 04:12 07/15/16 04:12 Diabetes panel 07/14/16 07/15/16 Range/Units 06:31 04:12 Sodium 139 (136-145) mEq/L Potassium 4.3 (3.5-4.5) mEq/L Chloride 106 (98-109) mEq/L Carbon Dioxide 25 (19-29) mEq/L BUN 11 (7-20) mg/dL Creatinine 0.96 (0.57-1.11) mg/dL Glucose 118 H (70-99) mg/dL Calcium 9.1 (8.6-10.8) mg/dL Triglycerides 63 (< 150) mg/dL HDL Cholesterol 36 L (40-59) mg/dL Calcium panel 07/15/16 Range/Units 04:12 Calcium 9.1 (8.6-10.8) mg/dL Pituitary panel 07/15/16 Range/Units 04:12 Sodium 139 (136-145) mEq/L Potassium 4.3 (3.5-4.5) mEq/L Chloride 106 (98-109) mEq/L Carbon Dioxide 25 (19-29) mEq/L BUN 11 (7-20) mg/dL Creatinine 0.96 (0.57-1.11) mg/dL Glucose 118 H (70-99) mg/dL Calcium 9.1 (8.6-10.8) mg/dL Adrenal panel 07/15/16 Range/Units 04:12 Sodium 139 (136-145) mEq/L Potassium 4.3 (3.5-4.5) mEq/L Chloride 106 (98-109) mEq/L Carbon Dioxide 25 (19-29) mEq/L BUN 11 (7-20) mg/dL Creatinine 0.96 (0.57-1.11) mg/dL Glucose 118 H (70-99) mg/dL Calcium 9.1 (8.6-10.8) mg/dL Consult Discharge Plan - Plan Referrals: Antonietta Busch, SORTER LUMBER STRAIGHTENER [Primary Care Provider] -
--- NOTE | 2016-07-15 08:03 | ECHO - Doppler Report ---
Echocardiogram Name: Olivia Kunz Date of Study: 07/14/2016 Date: 1965 Ht: 62.0 in Medical Record#: [id number] Age: 50 Wt: 153.0 lb Gender: Female BSA: 1.71 Order #: [id number] Location: [facility] Room #: 3B49 Reading Physician: Ren Betancourt DO, SONG EPPS FASNC Hadoop Java Developer: Cass Tucker RDCS Ordering Physician: Syd Noel DO Primary Physician: Antonietta Busch CNP Indications: Chest pain, Elevated Troponin Impressions: LVEF 65%. Normal LV chamber size, wall thickness and function. Mild left ventricular diastolic dysfunction. Normal right ventricular structure and function. No evidence of pulmonary hypertension. No significant valvular dysfunction. Left Ventricular Wall Motion: Rest Echo Findings All wall segments showed normal motion. Findings: Study Quality * Technically adequate exam. ECG Findings * Normal sinus rhythm. Left Ventricle * LVEF 65%. * Normal LV chamber size, wall thickness and function. * Mild left ventricular diastolic dysfunction. Right Ventricle * Normal right ventricular structure and function. Left Atrium * Normal left atrial size. Right Atrium * Normal right atrial size. Interatrial Septum * Interatrial septum not well evaluated. Aortic Valve * Trileaflet aortic valve with normal function. * No aortic regurgitation. * No aortic stenosis. Mitral Valve * Normal mitral valve structure and function. * No mitral regurgitation. * No mitral stenosis. Tricuspid Valve * Normal tricuspid valve structure and function. * Trace tricuspid regurgitation. * No evidence of pulmonary hypertension. Pulmonic Valve * Pulmonic valve not well visualized. * No pulmonic regurgitation. Aorta * Normally sized aortic root. Pericardium * The pericardium appears normal. IVC * Normal IVC dimensions and inspiratory collapse. Pulmonary Artery * Normal visualized portions of the main pulmonary artery. History Hypertension Family History of CAD 02/25/2016 a Previous Echo was performed. Measurements: BP: 120/ 76 2D Normal Values RVIDd: 2.70 cm <2.7 cm IVSd: .88 cm 0.6 - 1.0 cm LVIDd: 4.50 cm 3.7 - 5.6 cm LVPWd: .87 cm 0.6 - 1.1 cm LVIDs: 2.44 cm 1.5 - 3.6 cm AO: 2.40 cm < 4.0 cm LA: 3.50 cm 2.0 - 4.0cm %FS: 45.80 cm >25 % LA volume: 33 Mitral Valve Peak E:.85 m/sec Peak A:1.12 m/sec E/A Ratio:0.8 Peak E' Lat Julio Cesar:10.1 cm/s Peak E' Med Julio Cesar:7.58 cm/s E/E' Lat Ratio:8.4 E/E' Med Ratio:11.2 Tricuspid Valve TV Regurg Peak Grad: 11.00mmHg TV Regurg Peak Julio Cesra: 1.63m/sec Updated by Ren Betancourt DO, MICH, SONG, CARROL on 07/15/2016 7:57:04 AM electronically signed on 07/15/2016 7:57:19 AM with status of Final Wall Motion [place]: 1=Normal, 2=Hypokinesis, 3=Akinesis, 4=Dyskinesis, 5=Aneurysmal, 6=Hyperkinetic, X=Not Visualized (Blank)=Missing
--- NOTE | 2016-07-15 08:15 | Cardiology Progress Note ---
<Syd Noel - Last Filed: 07/15/16 08:36> Date of Encounter: 07/15/16 Time of Encounter: 08:15 Assessment and Plan (1) Elevated troponin Current Visit: Yes Status: Acute - initial mildly elevated troponin now negative x2, was in the setting of UTI/ PERRI Cr 1.22 and a 7.4 mm ureteral stone - patient is currently chest pain free - risk factors include hypertension and family history of cardiac disease - repeat EKG with minimal ST-T wave changes otherwise unremarkable - heparin discontinued - continue on ASA, BB, statin - ECHO 07/14 EF 65%, normal LV and heart function, no hypokinesis - patient is cleared for surgery today - discussed outpatient cardiac followup, patient is in agreement with plan Cardiology will sign off. Thank you for involving us in her care. Please call for further questions. (2) PERRI (acute kidney injury) Current Visit: Yes Status: Acute - resolved - CT ABD/Pelvis 7.4 mm right renal stone (3) HTN (hypertension) Current Visit: Yes Status: Acute - continue home BP medications, BP 130s - HR 80s Qualifiers: Hypertension type: essential hypertension Qualified Code(s): I10 - Essential (primary) hypertension Discussion w patient/family: The assessment and plan as outlined above was discussed with the patient and/or family members who expressed understanding and agreement. All questions were answered. Thank you for involving us in the care of your patient. Please call with any questions. Subjective Principal diagnosis: Chest pain, renal stones Interval history: Patient seen and examined at bedside. Patient has no complaints. Denies any chest pain since admission. She is scheduled for ureteral stone extraction today. Echocardiogram reviewed from yesterday shows normal EF with normal heart function. She denies any shortness of breath, lightheadedness, nausea. Discussed that outpatient cardiac workup will be necessary. Patients in agreement with plan. Objective Vital Signs, Last 4 Hours Temp Pulse Resp BP Pulse Ox 07/15/16 06:57 98.9 F 92 15 133/87 97 General: Conversant, No Apparent Distress HEENT: Atraumatic, Normocephaly, Mucus Membranes Moist Neck: No JVD, Normal carotid pulses Cardiac: Reg Rate and Rhythm, Normal S1 and S2, No Murmur Lungs: Normal Breath Sounds, No Wheeze, Rales, Rhonchi Neuro: Alert and responsive, No focal deficits noted Abdomen: Soft, Non-Tender Skin: No rashes noted on visualized skin Musculoskeletal: No Chest Wall Tenderness Extremities: No Clubbing, No Cyanosis, No Edema, Normal Pulses Results 07/15/16 04:12 07/15/16 04:12 Lab Results 07/14/16 07/14/16 07/14/16 06:31 12:41 12:41 WBC Hgb Hct Plt Count APTT 71.0 H D Sodium Potassium Chloride Carbon Dioxide BUN Creatinine Glucose Calcium Troponin I 0.06 H* 0.03 07/14/16 07/14/16 07/15/16 18:35 18:35 04:12 WBC 6.8 Hgb 11.7 Hct 36.5 Plt Count 199 APTT 52.4 H Sodium Potassium Chloride Carbon Dioxide BUN Creatinine Glucose Calcium Troponin I 0.01 07/15/16 04:12 WBC Hgb Hct Plt Count APTT Sodium 139 Potassium 4.3 Chloride 106 Carbon Dioxide 25 BUN 11 Creatinine 0.96 Glucose 118 H Calcium 9.1 Troponin I - Imaging and Cardiology Echo: report reviewed (EF 65% No hypokinesis normal heart function) - EKG Interpretation EKG results cardiology: personally reviewed Consult Discharge Plan - Plan Referrals: Antonietta Busch, PIGEON FANCIER [Primary Care Provider] - <Ranjit Cote - Last Filed: 07/15/16 09:30> Date of Encounter: 07/15/16 Assessment and Plan (1) Chest pain Current Visit: Yes Status: Acute Given Echo EF and Troponins trending down - OK to proceed with Urologic surgery. May need additional CV assessment - probably as an outpt. Qualifiers: Chest pain type: chest pain due to myocardial ischemia Ischemic chest pain type: stable angina pectoris Qualified Code(s): I20.8 - Other forms of angina pectoris Discussion w patient/family: The assessment and plan as outlined above was discussed with the patient and/or family members who expressed understanding and agreement. All questions were answered. Thank you for involving us in the care of your patient. Please call with any questions. Objective Vital Signs, Last 4 Hours Temp Pulse Resp BP Pulse Ox 07/15/16 06:57 98.9 F 92 15 133/87 97 Results 07/15/16 04:12 07/15/16 04:12 Lab Results 07/14/16 07/14/16 07/14/16 06:31 12:41 12:41 WBC Hgb Hct Plt Count APTT 71.0 H D Sodium Potassium Chloride Carbon Dioxide BUN Creatinine Glucose Calcium Troponin I 0.06 H* 0.03 07/14/16 07/14/16 07/15/16 18:35 18:35 04:12 WBC 6.8 Hgb 11.7 Hct 36.5 Plt Count 199 APTT 52.4 H Sodium Potassium Chloride Carbon Dioxide BUN Creatinine Glucose Calcium Troponin I 0.01 07/15/16 04:12 WBC Hgb Hct Plt Count APTT Sodium 139 Potassium 4.3 Chloride 106 Carbon Dioxide 25 BUN 11 Creatinine 0.96 Glucose 118 H Calcium 9.1 Troponin I
[2016-07-15] MEDS: Aspirin 81 MG TAB.CHEW PO SCH (08:27)
[2016-07-15] MEDS ORDERED: D5% in 0.45% NACL 1,000 ML IVC SCH (08:45)
[2016-07-15] MEDS ORDERED: *HR* FentaNYL (PF) 100 MCG/2 ML VIAL ONE ×2 (16:01→16:51)
[2016-07-15] MEDS ORDERED: *HR* Propofol 200 MG/20 ML VIAL IVP ONE (16:01)
[2016-07-15] MEDS ORDERED: Lidocaine -MPF 2% 2 ML VIAL ONE (16:04)
--- NOTE | 2016-07-15 16:26 | Operative Note ---
Date of procedure: 07/15/16 Pre-op diagnosis: right mid ureteral stone Post-op diagnosis: other (passed stone) Procedure: right ureteroscopy with retrograde pyelogram and stent placement Anesthesia: GETA Surgeon: Javi Bentley Estimated blood loss (cc): 0 Specimen: stone Condition: stable Disposition: PACU Procedure in Detail: PROCEDURE IN DETAIL: Patient was taken back to the operating room, positioned supine on the operating table. Anesthesia was applied without complication. They were moved into dorsal lithotomy. Careful attention was maintained to cushion all pressure points for patient's safety. They were prepped and draped in sterile fashion. Time-out was performed with the proper patient and procedure. A 21-Mauritian rigid cystoscope was inserted into the bladder without difficulty. Systematic examination of bladder revealed significant cystitis. The ureteral orifice was cannulated using a 5-Mauritian ureteral Catheter and a retrograde pyelogram was performed using Isovue. expected filling defect was not identified in mid ureter. Narrowing and abnormality seen at the ureteropelvic junction. At that point, a zip wire was placed through the 5- Mauritian and confirmed in the renal pelvis with fluoroscopy. An 8-10 dilator was then placed over the zip wire to passively dilate the ureteral orifice. A flexible ureteroscope was carefully inserted into the bladder and guided into the ureteral oriface. Significant mucosal edema was seen in the mid ureter consistent with the prior location of the stone. She had evidence of narrowing at the UPJ which was more consistent with the UPJ obstruction but there was no stone. I looked at each calyceal system and there was no stones. At this point I surmised that she passed the stone prior to proceeding to the operating room. A 4.8 x 26 ureteral stent was placed over the zip wire under fluoroscopy without complication. The string was left attached to the stent and secured to the patient for easy removal in approximately 72 hours Patient will likely be able to be discharged tomorrow if vital signs remain stable
--- NOTE | 2016-07-15 16:30 | Electrocardiograph Report ---
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
[2016-07-15] MEDS ORDERED: *HR* HYDROmorphone (PF) 1 MG/ML SYRINGE IVP PRN (16:44)
--- NOTE | 2016-07-15 16:51 | Internal Med Progress Note ---
Date of Encounter: 07/15/16 Time of Encounter: 10:00 - Assessment and plan (1) Ureteral stone with hydronephrosis Current Visit: Yes Status: Acute Assessment and plan: Urology consult saw patient. Plan for stone removal today. Patient is at high risk because she needs surgical intervention. (2) Chest pain Current Visit: Yes Status: Acute Assessment and plan: Patient has a family history of CAD. She has risk factor of hypertension and hyperlipidemia. Need to rule out ACS. First of 2 troponin positive. However, the third troponin trended down. Cardiology consult appreciated. Not considered ACS now. Heparin drip discontinued. Continue aspirin, beta kinsey , and statin. Qualifiers: Chest pain type: chest pain due to myocardial ischemia Ischemic chest pain type: stable angina pectoris Qualified Code(s): I20.8 - Other forms of angina pectoris (3) Elevated troponin Current Visit: Yes Status: Acute Assessment and plan: Cardiology consult saw Patient. Most likely demand ischemia. Troponin trended down to normal. (4) HLD (hyperlipidemia) Current Visit: Yes Status: Acute Assessment and plan: Continue simvastatin treatment Qualifiers: Hyperlipidemia type: unspecified Qualified Code(s): E78.5 - Hyperlipidemia , unspecified (5) HTN (hypertension) Current Visit: Yes Status: Acute Assessment and plan: BP is stable. Hold BP medications now since blood pressure is not high. Qualifiers: Hypertension type: essential hypertension Qualified Code(s): I10 - Essential (primary) hypertension (6) UTI (urinary tract infection) Current Visit: Yes Status: Acute Assessment and plan: Patient has ureteral stone and UTI. On Rocephin IV. Qualifiers: Urinary tract infection type: site unspecified Hematuria presence: with hematuria Qualified Code(s): N39.0 - Urinary tract infection, site not specified; R31.9 - Hematuria, unspecified (7) DVT prophylaxis Current Visit: Yes Status: Acute Assessment and plan: Heparin subcutaneously - Subjective Interval history: Patient is a 50-year-old female admitted for chest pain. Her past medical history is significant for hypertension and hyperlipidemia. Patient also complaining recent hematuria and was treated as UTI. Patient was seen and examined. She has no chest pain today. In no acute distress. No fever, vital signs stable. Echo result unremarkable. Heparin drip has discontinued. Will proceed to urology procedure to remove the ureteral stone. Continue IV Rocephin. - Constitutional Vitals: Temp Pulse Resp BP Pulse Ox 98.2 F 65 16 150/82 99 07/15/16 15:02 07/15/16 15:02 07/15/16 15:02 07/15/16 15:02 07/15/16 15:02 General appearance: Present: A&O X 3, pleasant, no acute distress, answers questions appropriately - Head Head exam: Present: atraumatic, normocephalic - Eye Eye exam: Present: PERRL, conjuntiva pink, sclera anicteric Pupils: Present: PERRL - Neck Neck exam general surgery: Present: supple, trachea midline. Absent: lymphadenopathy - Respiratory Respiratory exam: Present: CTAB. Absent: accessory muscle use, rales, rhonchi, wheezes - Cardiovascular Cardiovascular exam: Present: RRR, +S1, +S2. Absent: diastolic murmur, gallop, rubs, systolic murmur - GI/Abdominal GI/Abdominal exam: Present: normal bowel sounds, soft, no peritoneal signs. Absent: distended, tenderness - Extremities Exam Extremities exam: Present: warm, radial pulses palpable and symetrical. Absent : calf tenderness, cyanotic, pedal edema - Neurological Exam Neurological exam: Present: CN II-XII intact, oriented X3, no focal deficits. Absent: pronater drift, facial droop, speech deficit - Skin Skin exam: Present: dry, intact Internal Medicine: Result - Labs CBC & Chem 7: 07/15/16 04:12 07/15/16 04:12 Labs: Short CBC 07/15/16 Range/Units 04:12 WBC 6.8 (4.3-11.1) K/mcL Hgb 11.7 (11.5-15.4) g/dL Hct 36.5 (35.3-44.9) % Plt Count 199 (140-400) K/mcL Neutrophils # 4.2 (1.6-8.9) K/mcL BMP 07/15/16 04:12 Sodium 139 Potassium 4.3 Chloride 106 Carbon Dioxide 25 BUN 11 Creatinine 0.96 Glucose 118 H Calcium 9.1 Cardiac Enzymes 07/14/16 Range/Units 18:35 Troponin I 0.01 (0-0.03) ng/mL - ABG Interpretation ABG results: PT/INR, D-dimer PT 12.9 Seconds (9.4-12.1) H 07/14/16 00:30 - Impressions Impressions Abdomen/Pelvis CT 07/14/16 09:15 IMPRESSION: 1. Moderate right renal hydronephrosis with three stones within the mid to distal ureter measuring up to 7.4 mm. D/ / 07/14/2016 11:14:58 Luis Marino MD / norm Interpreting Provider: Luis Marino MD Consult Discharge Plan - Plan Referrals: Antonietta Busch, [employer] MANAGER [Primary Care Provider] -
--- NOTE | 2016-07-15 17:31 | Anesthesia Evaluation Post Op ---
Date of Encounter: 07/15/16 Time of Encounter: 17:30 - Vital Signs Vital Signs: Vital Signs/O2 Sat/Glucose, Most Current Temp Pulse Resp BP Pulse Ox 07/15/16 17:20 70 14 105/63 100 07/15/16 17:10 98.4 F 71 14 94/54 99 07/15/16 15:02 98.2 F 65 16 150/82 99 - Lungs Lungs: Clear Ascult./Percussion - Airway Airway: Non-obstructed - Cardiovascular Regular Rate - Mental Status Mental Status: Alert & Oriented, Answers Appropriately - Pain Pain Scale: 0 - Nausea Vomiting Nausea Vomiting: Not Present - Hydration Hydration: Tolerates oral liquids - Discharge PostOp Status: Discharge Patient to home
[2016-07-15] MEDS ORDERED: Nitroglycerin 0.4 MG TAB.SUBL SL PRN (17:46)
[2016-07-15] MEDS ORDERED: Ondansetron 4 MG/2 ML VIAL IVP PRN (17:46)
[2016-07-15] MEDS ORDERED: *HR* Morphine 2 MG/ML SYRINGE IVP PRN (17:46)
[2016-07-15] MEDS: *HR* HYDROcodone/Acet 5/325 mg TABLET PO PRN (18:47)
[2016-07-15] MEDS: D5% in 0.45% NACL 1,000 ML IVC SCH (18:49)
[2016-07-16] MEDS: *HR* HYDROcodone/Acet 5/325 mg TABLET PO PRN ×3 (00:17→14:01)
[2016-07-16] MEDS: D5% in 0.45% NACL 1,000 ML IVC SCH ×2 (06:25→18:22)
[2016-07-16] MEDS: hydroCHLOROthiazide 25 MG TABLET PO SCH (08:42)
[2016-07-16] MEDS: Aspirin 81 MG TAB.CHEW PO SCH (08:42)
[2016-07-16] MEDS: amLODIPine 5 MG TABLET PO SCH (08:43)
--- NOTE | 2016-07-16 09:17 | Urology Progress Note ---
Date of Encounter: 07/16/16 Time of Encounter: 09:00 - Assessment and Plan (1) Ureteral stone with hydronephrosis Current Visit: Yes Status: Resolved Assessment and plan: stent was removed bc of incontinence (it had migrated). As long as pain controlled this AM OK to discharge from standpoint. recommend ABX for 10 days. followup in 2-4 weeks. (2) UTI (urinary tract infection) Current Visit: Yes Status: Acute Qualifiers: Urinary tract infection type: site unspecified Hematuria presence: with hematuria Qualified Code(s): N39.0 - Urinary tract infection, site not specified; R31.9 - Hematuria, unspecified Progress Note Subjective: feels better Narrative: significant incontinence overnight. Objective Initial Vital Signs Temp Pulse Resp BP Pulse Ox 100.2 F H 115 16 135/99 96 07/14/16 00:10 07/14/16 00:10 07/14/16 00:10 07/14/16 00:10 07/14/16 00:10 - General physical appearance Present: well developed, no distress - Additional Exam stent was partially out of the urethra. - Labs 07/15/16 04:12 07/15/16 04:12 - VTE Documentation of Mechanical Device: Intermittent pneumatic compression device Consult Discharge Plan - Plan Referrals: Antonietta Busch, OBSTETRICS NURSE PRACTITIONER [Primary Care Provider] -
--- NOTE | 2016-07-16 16:46 | Internal Med Progress Note ---
Date of Encounter: 07/16/16 Time of Encounter: 10:00 - Assessment and plan (1) Ureteral stone with hydronephrosis Current Visit: Yes Status: Resolved Assessment and plan: Urology consult saw patient. Stent was put in. Stent has been removed this morning. Stone possibly eliminated by itself. We will continue antibiotic treatment and pain medication. Patient is at high risk because she needs surgical intervention. (2) Chest pain Current Visit: Yes Status: Acute Assessment and plan: Patient has a family history of CAD. She has risk factor of hypertension and hyperlipidemia. Need to rule out ACS. First of 2 troponin positive. However, the third troponin trended down. Cardiology consult appreciated. Not considered ACS now. Heparin drip discontinued. Continue aspirin, beta kinsey , and statin. Qualifiers: Chest pain type: chest pain due to myocardial ischemia Ischemic chest pain type: stable angina pectoris Qualified Code(s): I20.8 - Other forms of angina pectoris (3) Elevated troponin Current Visit: Yes Status: Acute Assessment and plan: Cardiology consult saw Patient. Most likely demand ischemia. Troponin trended down to normal. (4) HLD (hyperlipidemia) Current Visit: Yes Status: Acute Assessment and plan: Continue simvastatin treatment Qualifiers: Hyperlipidemia type: unspecified Qualified Code(s): E78.5 - Hyperlipidemia , unspecified (5) HTN (hypertension) Current Visit: Yes Status: Acute Assessment and plan: BP is stable. Hold BP medications now since blood pressure is not high. Qualifiers: Hypertension type: essential hypertension Qualified Code(s): I10 - Essential (primary) hypertension (6) UTI (urinary tract infection) Current Visit: Yes Status: Acute Assessment and plan: Patient has ureteral stone and UTI. On Rocephin IV. Urine culture shows Escherichia coli. Sensitive to Rocephin. Qualifiers: Urinary tract infection type: site unspecified Hematuria presence: with hematuria Qualified Code(s): N39.0 - Urinary tract infection, site not specified; R31.9 - Hematuria, unspecified (7) DVT prophylaxis Current Visit: Yes Status: Acute Assessment and plan: Heparin subcutaneously - Time Spent With Patient Greater than 35 minutes - Subjective Interval history: Patient is a 50-year-old female admitted for chest pain. Her past medical history is significant for hypertension and hyperlipidemia. Patient also complaining recent hematuria and was treated as UTI. Patient was seen and examined. She had urology procedure and put stent in yesterday. Stent has been removed this morning b/o incontinence. Patient complains of pain in lower abdomen. No fever, vitals are stable. Urine culture shows Escherichia coli sensitive to Rocephin, which patient is on now. We will continue antibiotic treatment, pain medication, close monitoring. - Constitutional Vitals: Temp Pulse Resp BP Pulse Ox 97.9 F 68 18 128/81 96 07/16/16 15:22 07/16/16 15:22 07/16/16 15:22 07/16/16 15:22 07/16/16 15:22 General appearance: Present: A&O X 3, pleasant, no acute distress, answers questions appropriately - Head Head exam: Present: atraumatic, normocephalic - Eye Eye exam: Present: PERRL, conjuntiva pink, sclera anicteric Pupils: Present: PERRL - Neck Neck exam general surgery: Present: supple, trachea midline. Absent: lymphadenopathy - Respiratory Respiratory exam: Present: CTAB. Absent: accessory muscle use, rales, rhonchi, wheezes - Cardiovascular Cardiovascular exam: Present: RRR, +S1, +S2. Absent: diastolic murmur, gallop, rubs, systolic murmur - GI/Abdominal GI/Abdominal exam: Present: normal bowel sounds, soft, tenderness, no peritoneal signs. Absent: distended - Extremities Exam Extremities exam: Present: warm, radial pulses palpable and symetrical. Absent : calf tenderness, cyanotic, pedal edema - Neurological Exam Neurological exam: Present: CN II-XII intact, oriented X3, no focal deficits. Absent: pronater drift, facial droop, speech deficit - Skin Skin exam: Present: dry, intact Internal Medicine: Result - Labs CBC & Chem 7: 07/15/16 04:12 07/15/16 04:12 - ABG Interpretation ABG results: PT/INR, D-dimer PT 12.9 Seconds (9.4-12.1) H 07/14/16 00:30 - Impressions Impressions Retrograde Pyelogram 07/15/16 16:36 IMPRESSION: No filling defects demonstrated to indicate stones. Apparent right UPJ stricture D/ / Javi Bar MD / Javi Bar MD Interpreting Provider: Javi Bar MD - VTE Documentation of Mechanical Device: Intermittent pneumatic compression device Consult Discharge Plan - Plan Referrals: Antonietta Busch CNP [Primary Care Provider] -
[2016-07-17] MEDS: *HR* HYDROcodone/Acet 5/325 mg TABLET PO PRN (00:16)
[2016-07-17] MEDS: D5% in 0.45% NACL 1,000 ML IVC SCH ×2 (03:46→15:49)
[2016-07-17] MEDS: Aspirin 81 MG TAB.CHEW PO SCH (07:22)
[2016-07-17] MEDS: amLODIPine 5 MG TABLET PO SCH (07:23)
[2016-07-17] MEDS: hydroCHLOROthiazide 25 MG TABLET PO SCH (07:23)
[2016-07-17 07:34] LABS: Basophils # 0.1 K/mcL (0.0-0.2); Basophils % 0.8 %; Eosinophils # 0.2 K/mcL (0.0-0.6); Eosinophils % 3.2 %; Hematocrit 38.5 % (35.3-44.9); Immature Granulocytes % 0.3 % (0-4); Lymphocytes # 1.6 K/mcL (0.6-4.6); Lymphocytes % 26.3 %; Mean Corpuscular HGB Conc 31.2 g/dL (31.6-35.5); Mean Corpuscular Hemoglobin 26.9 pg (28.0-33.3); Mean Corpuscular Volume 86.3 fL (83.0-100.0); Mean Platelet Volume 9.8 fL (9.4-12.4); Monocytes # 0.6 K/mcL (0.0-1.3); Monocytes % 9.7 %; Neutrophils # 3.6 K/mcL (1.6-8.9); Platelet Count 258 K/mcL (140-400); Red Blood Count 4.46 M/mcL (3.82-4.97); Red Cell Distribution Width 13.1 % (11.5-14.5); Segmented Neutrophils % 59.7 %
[2016-07-17 07:43] LABS: Calcium 9.5 mg/dL (8.6-10.8); Potassium 4.3 mEq/L (3.5-4.5)
--- NOTE | 2016-07-17 08:42 | Urology Progress Note ---
Date of Encounter: 07/17/16 Time of Encounter: 08:41 - Assessment and Plan (1) Ureteral stone with hydronephrosis Current Visit: Yes Status: Resolved Assessment and plan: pain decreased today. Ok with discharge from standpoint. (2) UTI (urinary tract infection) Current Visit: Yes Status: Acute Qualifiers: Urinary tract infection type: site unspecified Hematuria presence: with hematuria Qualified Code(s): N39.0 - Urinary tract infection, site not specified; R31.9 - Hematuria, unspecified Progress Note Subjective: feels better Narrative: pt had expected post stent removal discomfort (stetn was removed 2 days early bc of incontinence). pain improved today. Objective Initial Vital Signs Temp Pulse Resp BP Pulse Ox 100.2 F H 115 16 135/99 96 07/14/16 00:10 07/14/16 00:10 07/14/16 00:10 07/14/16 00:10 07/14/16 00:10 - General physical appearance Present: well developed, no distress - Labs 07/17/16 07:04 07/17/16 07:04 Diabetes panel 07/17/16 Range/Units 07:04 Sodium 139 (136-145) mEq/L Potassium 4.3 (3.5-4.5) mEq/L Chloride 105 (98-109) mEq/L Carbon Dioxide 25 (19-29) mEq/L BUN 13 (7-20) mg/dL Creatinine 1.26 H (0.57-1.11) mg/dL Glucose 105 H (70-99) mg/dL Calcium 9.5 (8.6-10.8) mg/dL Calcium panel 07/17/16 Range/Units 07:04 Calcium 9.5 (8.6-10.8) mg/dL Pituitary panel 07/17/16 Range/Units 07:04 Sodium 139 (136-145) mEq/L Potassium 4.3 (3.5-4.5) mEq/L Chloride 105 (98-109) mEq/L Carbon Dioxide 25 (19-29) mEq/L BUN 13 (7-20) mg/dL Creatinine 1.26 H (0.57-1.11) mg/dL Glucose 105 H (70-99) mg/dL Calcium 9.5 (8.6-10.8) mg/dL Adrenal panel 02/12/17 Range/Units 07:04 Sodium 139 (136-145) mEq/L Potassium 4.3 (3.5-4.5) mEq/L Chloride 105 (98-109) mEq/L Carbon Dioxide 25 (19-29) mEq/L BUN 13 (7-20) mg/dL Creatinine 1.26 H (0.57-1.11) mg/dL Glucose 105 H (70-99) mg/dL Calcium 9.5 (8.6-10.8) mg/dL - VTE Documentation of Mechanical Device: Intermittent pneumatic compression device Consult Discharge Plan - Plan Referrals: Antonietta Busch, SALES SUPPORT ADVISOR [Primary Care Provider] -
--- NOTE | 2016-07-17 17:58 | Internal Med Progress Note ---
Date of Encounter: 07/17/16 Time of Encounter: 10:00 - Assessment and plan (1) Ureteral stone with hydronephrosis Current Visit: Yes Status: Resolved Assessment and plan: Urology consult saw patient. Stent was put in. Stent has been removed later. Stone possibly eliminated by itself. We will continue antibiotic treatment and pain medication. Patient is at high risk because she needs surgical intervention. (2) Chest pain Current Visit: Yes Status: Acute Assessment and plan: Patient has a family history of CAD. She has risk factor of hypertension and hyperlipidemia. Need to rule out ACS. First of 2 troponin positive. However, the third troponin trended down. Cardiology consult appreciated. Not considered ACS now. Heparin drip discontinued. Continue aspirin, beta kinsey , and statin. Qualifiers: Chest pain type: chest pain due to myocardial ischemia Ischemic chest pain type: stable angina pectoris Qualified Code(s): I20.8 - Other forms of angina pectoris (3) Elevated troponin Current Visit: Yes Status: Acute Assessment and plan: Cardiology consult saw Patient. Most likely demand ischemia. Troponin trended down to normal. (4) HLD (hyperlipidemia) Current Visit: Yes Status: Acute Assessment and plan: Continue simvastatin treatment Qualifiers: Hyperlipidemia type: unspecified Qualified Code(s): E78.5 - Hyperlipidemia , unspecified (5) HTN (hypertension) Current Visit: Yes Status: Acute Assessment and plan: BP is stable. Cont home medication Qualifiers: Hypertension type: essential hypertension Qualified Code(s): I10 - Essential (primary) hypertension (6) UTI (urinary tract infection) Current Visit: Yes Status: Acute Assessment and plan: Patient has ureteral stone and UTI. On Rocephin IV. Urine culture shows Escherichia coli. Sensitive to Rocephin. Qualifiers: Urinary tract infection type: site unspecified Hematuria presence: with hematuria Qualified Code(s): N39.0 - Urinary tract infection, site not specified; R31.9 - Hematuria, unspecified (7) DVT prophylaxis Current Visit: Yes Status: Acute Assessment and plan: Heparin subcutaneously - Time Spent With Patient Greater than 35 minutes - Subjective Interval history: Patient is a 50-year-old female admitted for chest pain. Her past medical history is significant for hypertension and hyperlipidemia. Patient also complaining recent hematuria and was treated as UTI. Patient was seen and examined. She had urology procedure and put stent . Stent has been removed later b/o incontinence. Patient has no pain. No fever, vitals are stable. Urine culture shows Escherichia coli sensitive to Rocephin, which patient is on now. Mild elevated creatinine level, will continue IV fluid , renal ultrasound to rule out further obstruction, follow up her renal function. - Constitutional Vitals: Temp Pulse Resp BP Pulse Ox 97.4 F L 75 16 162/98 99 07/17/16 15:50 07/17/16 15:50 07/17/16 15:50 07/17/16 15:50 07/17/16 15:50 General appearance: Present: A&O X 3, pleasant, no acute distress, answers questions appropriately - Head Head exam: Present: atraumatic, normocephalic - Eye Eye exam: Present: PERRL, conjuntiva pink, sclera anicteric Pupils: Present: PERRL - Neck Neck exam general surgery: Present: supple, trachea midline. Absent: lymphadenopathy - Respiratory Respiratory exam: Present: CTAB. Absent: accessory muscle use, rales, rhonchi, wheezes - Cardiovascular Cardiovascular exam: Present: RRR, +S1, +S2. Absent: diastolic murmur, gallop, rubs, systolic murmur - GI/Abdominal GI/Abdominal exam: Present: normal bowel sounds, soft, no peritoneal signs. Absent: distended, tenderness - Extremities Exam Extremities exam: Present: warm, radial pulses palpable and symetrical. Absent : calf tenderness, cyanotic, pedal edema - Neurological Exam Neurological exam: Present: CN II-XII intact, oriented X3, no focal deficits. Absent: pronater drift, facial droop, speech deficit - Skin Skin exam: Present: dry, intact Internal Medicine: Result - Labs CBC & Chem 7: 07/17/16 07:04 07/17/16 07:04 Labs: Short CBC 07/17/16 Range/Units 07:04 WBC 6.0 (4.3-11.1) K/mcL Hgb 12.0 (11.5-15.4) g/dL Hct 38.5 (35.3-44.9) % Plt Count 258 (140-400) K/mcL Neutrophils # 3.6 (1.6-8.9) K/mcL BMP 07/17/16 07:04 Sodium 139 Potassium 4.3 Chloride 105 Carbon Dioxide 25 BUN 13 Creatinine 1.26 H Glucose 105 H Calcium 9.5 - ABG Interpretation ABG results: PT/INR, D-dimer PT 12.9 Seconds (9.4-12.1) H 07/14/16 00:30 - VTE Documentation of Mechanical Device: Intermittent pneumatic compression device Consult Discharge Plan - Plan Referrals: Antonietta Busch, MELECIO [Primary Care Provider] -
[2016-07-18] MEDS: D5% in 0.45% NACL 1,000 ML IVC SCH (01:49)
[2016-07-18 05:39] LABS: BUN/Creatinine Ratio 15 (6-26); Blood Urea Nitrogen 14 mg/dL (7-20); Calcium 9.6 mg/dL (8.6-10.8); Carbon Dioxide 26 mEq/L (19-29); Chloride 105 mEq/L (98-109); Glucose 106 mg/dL (70-99); Osmolality,Calculated 291 (280-300); Potassium 4.2 mEq/L (3.5-4.5); Sodium 140 mEq/L (136-145); eGFR For African Americans > 60 (> 60); eGFR For Non-African Americans > 60 (> 60)
[2016-07-18] MEDS: Aspirin 81 MG TAB.CHEW PO SCH (08:25)
[2016-07-18] MEDS: hydroCHLOROthiazide 25 MG TABLET PO SCH (08:25)
[2016-07-18] MEDS: amLODIPine 5 MG TABLET PO SCH (08:25)
[2016-07-18 10:43] VITALS: BP 134/82
--- NOTE | 2016-07-18 11:09 | Discharge Summary ---
Date of Encounter: 07/18/16 Time of Encounter: 10:00 - Discharge Diagnosis (1) Ureteral stone with hydronephrosis Priority: Primary Status: Resolved (2) Chest pain Priority: Primary Status: Acute Qualifiers: Chest pain type: chest pain due to myocardial ischemia Ischemic chest pain type: stable angina pectoris Qualified Code(s): I20.8 - Other forms of angina pectoris (3) Elevated troponin Priority: Primary Status: Acute (4) HLD (hyperlipidemia) Priority: Secondary Status: Acute Qualifiers: Hyperlipidemia type: unspecified Qualified Code(s): E78.5 - Hyperlipidemia , unspecified (5) HTN (hypertension) Priority: Secondary Status: Acute Qualifiers: Hypertension type: essential hypertension Qualified Code(s): I10 - Essential (primary) hypertension (6) UTI (urinary tract infection) Priority: Primary Status: Acute Qualifiers: Urinary tract infection type: site unspecified Hematuria presence: with hematuria Qualified Code(s): N39.0 - Urinary tract infection, site not specified; R31.9 - Hematuria, unspecified (7) DVT prophylaxis Priority: Secondary Status: Acute - Discharge Medications Prescriptions: Aspirin 81 mg PO DAILY #30 tab.chew Simvastatin [Zocor] 20 mg PO QPM #30 tablet Home Medications: Amlodipine Besylate 10 mg PO DAILY 07/04/16 [History] Hydrochlorothiazide 25 mg PO DAILY 07/04/16 [History] Metoprolol Tartrate 75 mg PO BID 07/04/16 [History] Aspirin 81 mg PO DAILY #30 tab.chew 07/18/16 [Rx] Levofloxacin [Levaquin] 750 mg PO DAILY #5 tablet 07/18/16 [Rx] Simvastatin [Zocor] 20 mg PO QPM #30 tablet 07/18/16 [Rx] Allergies/Adverse Reactions: Allergies dexamethasone [From Decadron] Allergy (Verified 07/04/16 21:03) Anaphylaxis Date of admission: 07/14/16 05:30 Primary care physician: Antonietta Busch CNP Discharging clinician: Jarvis Mei Anticipated date of discharge: 07/18/16 - Patient Status Disposition: Home, Self-Care Condition: Good Functional capacity at discharge: independent ambulation Overall status at discharge: patient is back to baseline - Discharge Instructions Follow Up With: Antonietta Busch CNP [Primary Care Provider] - - Diet and Activity Activity: increase activity as tolerated Diet: advance to your usual diet Interval History: Ms. Kunz is a 50 year old female with PMHx of HLD, HTN. Patient came in with CC of typical anginal chest pain that started about one week ago. She also feels like she has a lot of pressure in her chest. She never had anything like this before. She rates the pain as 10/10, and her pain is located in mid-chest, as well as left shoulder pain. 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 Going from inside to the cold weather outside causes her to have pain as well. Her pain is relieved when she sits down to rest. When she called the squad, she received 4 aspirin 2 nitroglycerin, and her pain went from 10/10 to 2/10. Upon examination, she was chest pain free. She has a strong family Hx of heart disease, her mother had her first AL at age 40 and had bypass surgery at that time, she also had carotid stent placement. Patient also states that she had symptoms of a UTI that started about 1 week ago with gross blood clots when she urinates. Her doctor started her on bactrim for the UTI. She denies any history of kidney stones. Hospital course: Ms. Kunz is a 50 year old female admitted for chest pain, patient also complained UTI with hematuria for several days. She was found elevated troponin , cardiology consult was called and saw patient. Patient had echo resulted unremarkable. Troponin level trended down to normal limits. Cardiology recommended continue ASA, statin, and a beta kinsey, no further workup needed. Patient was also found the ureter stone with hydronephrosis. Urology consult was called and urology procedure has been done to remove the stone. There is no stone found during the procedure, possibly expelled by itself. After procedure, patient is stable, no further hematuria. Patient is cleared by urology to discharge. I saw and examined patient today. She denies chest pain, shortness of breath, fever, or abdominal pain. Her vital signs stable. Labs unremarkable. Urine culture showed Escherichia coli, sensitive to Levaquin. We will discharge patient home with Levaquin 750 mg by mouth for 5 more days. Patient will follow -up with her PCP as outpatient. - Time Spent with Patient Total time spent providing and/or coordinating discharge services: 40 minutes Greater than 30 minutes - Constitutional Vitals: Temp Pulse Resp BP Pulse Ox 97.8 F 72 16 134/82 96 07/18/16 10:41 07/18/16 10:41 07/18/16 10:41 07/18/16 10:41 07/18/16 10:41 General appearance: Present: A&O X 3, pleasant, no acute distress, answers questions appropriately - Head Head exam: Present: atraumatic, normocephalic - Eye Eye exam: Present: PERRL, conjuntiva pink, sclera anicteric Pupils: Present: PERRL - Neck Neck exam general surgery: Present: supple, trachea midline. Absent: lymphadenopathy - Respiratory Respiratory exam: Present: CTAB. Absent: accessory muscle use, rales, rhonchi, wheezes - Cardiovascular Cardiovascular exam: Present: RRR, +S1, +S2. Absent: diastolic murmur, gallop, rubs, systolic murmur - GI/Abdominal GI/Abdominal exam: Present: normal bowel sounds, soft, no peritoneal signs. Absent: distended, tenderness - Extremities Exam Extremities exam: Present: warm, radial pulses palpable and symetrical. Absent : calf tenderness, cyanotic, pedal edema - Neurological Exam Neurological exam: Present: CN II-XII intact, oriented X3, no focal deficits. Absent: pronater drift, facial droop, speech deficit - Skin Skin exam: Present: dry, intact - VTE Documentation of Mechanical Device: Intermittent pneumatic compression device
== END 2016-07-18 12:38 | disposition home or self-care (01) | DRG 465 ==
LOC: EMEROO 00:07 → 3BNU 00:07 → SUATTDRO 05:30 → 3BNU 05:34
PROVIDERS: ADMIT Nurse Practitioner Family; ATTEND Internal Medicine

== ENCOUNTER 2017-05-24 08:45 | Observation (INO) ==
[2017-05-24] MEDS ORDERED: *HR* LORazepam 2 MG/ML VIAL IVP ONE (09:12)
[2017-05-24] MEDS ORDERED: Aspirin 81 MG TAB.CHEW PO ONE (09:12)
--- NOTE | 2017-05-24 09:17 | Emergency Department Note ---
Disposition Clinical Impression: ACS (acute coronary syndrome), Unstable angina Disposition: Admitted As Inpatient Referrals: Antonietta Busch CNP [Primary Care Provider] - Forms: ED Satisfaction Letter Chest Pain HPI - General Chief Complaint: ED Chest Pain Stated Complaint: Hypertension Time Seen by Provider: 05/24/17 08:55 Source: patient Limitations: no limitations Vital Signs Reviewed: Yes Nursing Notes Reviewed: Yes - History of Present Illness HPI Narrative: History of present illness: 51-year-old female history of hypertension stage II kidney disease chest pain or anginal was referred by Dr. Morillo this morning when she was at an office visit and her systolic was about 200. Patient states the past 6 months she has been getting dyspnea on exertion with chest pain and pressure with exertion more easily for the past 6 months. She said normally eats in the later morning and afternoon and evening's. It abates with rest. The last episode was yesterday and it lasted for about 10 minutes without radiation check some slight nausea. She had a nuclear stress test in February 2016 which was "okay " per patient. Patient was supposed to get a cardiac catheterization but was canceled twice, the last time was because she was in the hospital last July with "sepsis". Patient relates that her brother recently had a cardiac standpoint and had identical symptoms to what she is having with exertion. Patient here for further evaluation. She denies any fever, chills, nausea, vomiting, diaphoresis, weakness, numbness , dysuria, ill contacts, exotic foods or recent travel. Denies any recent medication regimen changes. Severity scale (1-10): 0 - Related Data Home Medications Medication Instructions Recorded Confirmed Amlodipine Besylate 10 mg PO DAILY 07/04/16 05/24/17 hydroCHLOROthiazide 25 mg PO DAILY 07/04/16 05/24/17 [Hydrochlorothiazide] Ferrous Sulfate [Iron] 325 mg PO DAILY 05/24/17 05/24/17 Metoprolol [Lopressor] 50 mg PO BID 05/24/17 05/24/17 cloNIDine HCl [CloNIDine HCl] 0.1 mg PO QPM 05/24/17 05/24/17 Previous Rx's Medication Instructions Recorded Aspirin 81 mg PO DAILY #30 tab.chew 07/18/16 Allergies Allergy/AdvReac Type Severity Reaction Status Date / Time dexamethasone [From Decadron] AdvReac Chest Pain Verified 05/24/17 09:36 All systems ED: reviewed and negative except as stated. Cardiovascular: Reports: chest pain, dyspnea on exertion Chest Pain PMH - Past Medical History Medical history: Reports: hypertension, renal disease Surgical history: Reports: no surgical history Psychiatric history: Reports: anxiety, depression [employer]FF[employer]OP MA[employer]GER history: Reports: bilateral tubal ligation - Social History Smoking Status: Never smoker Alcohol use: Reports: none Drug use: Reports: none Physical Exam - General Limitations: no limitations General appearance: alert, in no apparent distress, anxious, other (Tearful) - Head Head exam: atraumatic, normocephalic - Eye Eye exam: Present: normal appearance, PERRL - Neck Neck exam: Present: normal inspection, full ROM - Chest Chest inspection: Present: normal inspection, symmetric chest wall rise - Respiratory Respiratory exam: Present: normal lung sounds bilaterally - Cardiovascular Cardiovascular exam: Present: regular rate, normal rhythm - Abdominal Exam Abdominal exam: Present: soft, Non-Tender - Extremities Exam Extremities exam: Present: normal inspection, full ROM - Expanded Lower Extremity Exam Neurovascular/Tendon exam: Present: normal capillary refill Gait: observed and normal - Back Exam Back exam: Present: normal inspection, full ROM - Neurological Exam Neurological exam: Present: alert, oriented X3, CN II-XII intact - Psychiatric Psychiatric exam: Present: normal affect, normal mood - Skin Skin exam: Present: warm, dry, intact Course - Reevaluation(s) Reevaluation #1: Patient has a history and examination concerning for acute coronary syndrome unstable angina with an EKG aspirin will get Ativan to help control blood pressure screening labs with admission and anticipated and cardiology consultation. Provided 30 minutes critical care services to this patient disposition pending Time: 09:21 Reevaluation #2: ED workup is completed. Labs including troponin are essentially within normal limits her baseline. Chest x-ray read as no acute process. Case discussed with hospitalist Dr. Lopez and accepted for admission with orders place. Patient admitted in stable condition Time: 09:57 Vital Signs Temperature 98.1 F 05/24/17 08:47 Pulse Rate 80 05/24/17 08:47 Respiratory Rate 16 05/24/17 08:47 Blood Pressure 201/123 05/24/17 08:47 O2 Sat by Pulse Oximetry 100 05/24/17 08:47 Temperature 98.1 F 05/24/17 08:47 Pulse Rate 75 05/24/17 09:44 Respiratory Rate 18 05/24/17 09:44 Blood Pressure 177/111 05/24/17 09:44 O2 Sat by Pulse Oximetry 96 05/24/17 09:44 Oxygen Delivery Oxygen Delivery Room Air Chest Pain - Medical Records Medical records reviewed: Yes I reviewed the patient's medical records. - Lab Data Lab results reviewed: Yes I reviewed the patient's lab results. Result diagrams: 05/24/17 02:40 05/24/17 02:40 Lab Results 05/24/17 05/24/17 05/24/17 Range/Units 02:40 02:40 02:40 WBC 4.6 (4.3-11.1) K/mcL RBC 5.27 H (3.82-4.97) M/mcL Hgb 14.5 (11.5-15.4) g/dL Hct 44.0 (35.3-44.9) % MCV 83.5 (83.0-100.0) fL MCH 27.5 L (28.0-33.3) pg MCHC 33.0 (31.6-35.5) g/dL RDW 13.7 (11.5-14.5) % Plt Count 246 (140-400) K/mcL MPV 10.3 (9.4-12.4) fL Immature Gran % 0.4 (0-4) % Seg Neutrophils % 57.8 % Lymphocytes % 30.3 % Monocytes % 8.6 % Eosinophils % 2.2 % Basophils % 0.7 % Neutrophils # 2.6 (1.6-8.9) K/mcL Lymphocytes # 1.4 (0.6-4.6) K/mcL Monocytes # 0.4 (0.0-1.3) K/mcL Eosinophils # 0.1 (0.0-0.6) K/mcL Basophils # 0.0 (0.0-0.2) K/mcL PT 11.9 (9.4-12.1) Seconds INR 1.1 Sodium 139 (136-145) mEq/L Potassium 4.1 (3.5-5.1) mEq/L Chloride 105 (98-107) mEq/L Carbon Dioxide 28 (23-29) mEq/L BUN 18 (6-20) mg/dL Creatinine 0.98 (0.60-1.20) mg/dL Est GFR ( Amer) > 60 (> 60) Est GFR (Non-Af Amer) 60 (> 60) BUN/Creatinine Ratio 18 (6-26) Glucose 97 (70-105) mg/dL Calculated Osmolality 290 (280-300) Calcium 9.6 (8.6-10.3) mg/dL Troponin I (< 0.04) ng/mL 05/24/17 Range/Units 02:40 WBC (4.3-11.1) K/mcL RBC (3.82-4.97) M/mcL Hgb (11.5-15.4) g/dL Hct (35.3-44.9) % MCV (83.0-100.0) fL MCH (28.0-33.3) pg MCHC (31.6-35.5) g/dL RDW (11.5-14.5) % Plt Count (140-400) K/mcL MPV (9.4-12.4) fL Immature Gran % (0-4) % Seg Neutrophils % % Lymphocytes % % Monocytes % % Eosinophils % % Basophils % % Neutrophils # (1.6-8.9) K/mcL Lymphocytes # (0.6-4.6) K/mcL Monocytes # (0.0-1.3) K/mcL Eosinophils # (0.0-0.6) K/mcL Basophils # (0.0-0.2) K/mcL PT (9.4-12.1) Seconds INR Sodium (136-145) mEq/L Potassium (3.5-5.1) mEq/L Chloride (98-107) mEq/L Carbon Dioxide (23-29) mEq/L BUN (6-20) mg/dL Creatinine (0.60-1.20) mg/dL Est GFR ( Amer) (> 60) Est GFR (Non-Af Amer) (> 60) BUN/Creatinine Ratio (6-26) Glucose (70-105) mg/dL Calculated Osmolality (280-300) Calcium (8.6-10.3) mg/dL Troponin I < 0.03 (< 0.04) ng/mL - Radiology Data Radiology results reviewed: Yes I reviewed the patient's radiology results. - EKG Data EKG attestation: Yes I reviewed and interpreted this EKG. EKG results narrative: Twelve-lead EKG interpreted without cardiology shows the following: Sinus rhythm at 75 bpm. Normal MD QRS and QT corrected. Left ventricular hypertrophy by voltage criteria acute ischemic changes are noted No old EKG available for comparison
[2017-05-24 09:37] LABS: INR 1.1; Prothrombin Time 11.9 Seconds (9.4-12.1)
[2017-05-24 09:43] LABS: BUN/Creatinine Ratio 18 (6-26); Blood Urea Nitrogen 18 mg/dL (6-20); Calcium 9.6 mg/dL (8.6-10.3); Carbon Dioxide 28 mEq/L (23-29); Chloride 105 mEq/L (98-107); Glucose 97 mg/dL (70-105); Osmolality,Calculated 290 (280-300); Potassium 4.1 mEq/L (3.5-5.1); Sodium 139 mEq/L (136-145); eGFR For African Americans > 60 (> 60); eGFR For Non-African Americans 60 (> 60)
[2017-05-24 09:50] LABS: Basophils % 0.7 %; Eosinophils # 0.1 K/mcL (0.0-0.6); Eosinophils % 2.2 %; Hemoglobin 14.5 g/dL (11.5-15.4); Immature Granulocytes % 0.4 % (0-4); Lymphocytes # 1.4 K/mcL (0.6-4.6); Lymphocytes % 30.3 %; Mean Corpuscular Hemoglobin 27.5 pg (28.0-33.3); Mean Corpuscular Volume 83.5 fL (83.0-100.0); Mean Platelet Volume 10.3 fL (9.4-12.4); Monocytes # 0.4 K/mcL (0.0-1.3); Monocytes % 8.6 %; Neutrophils # 2.6 K/mcL (1.6-8.9); Platelet Count 246 K/mcL (140-400); Red Blood Count 5.27 M/mcL (3.82-4.97); Red Cell Distribution Width 13.7 % (11.5-14.5); Segmented Neutrophils % 57.8 %
[2017-05-24] MEDS ORDERED: Ondansetron 4 MG/2 ML VIAL IVP PRN (12:16)
[2017-05-24] MEDS ORDERED: Naloxone 0.4 MG/ML INJ IVP PRN (12:16)
[2017-05-24] MEDS ORDERED: Nitroglycerin 0.4 MG TAB.SUBL SL PRN (12:19)
--- NOTE | 2017-05-24 13:30 | Internal Med History&Physical ---
<Lorie Toledo - Last Filed: 05/24/17 13:43> Date of Encounter: 05/24/17 Time of Encounter: 13:14 Assessment and Plan (1) Chest pain Current visit: Yes Status: Acute Patient has been expressing intermittent chest pain which is aggravated with exertion relieved with rest over the past 6 months. She appeared only was supposed to have a cardiac catheterization which was not completed. Today she presented to her check writer with systolic blood pressure over 200. She was experiencing chest pain last night however she is presently chest pain-free. First troponin was 0 which we will continue to trend Continuous cardiac monitoring consult cardiology- I did seek with Drs. Ross who will see patient Continue with aspirin and statin and beta kinsey Nitroglycerin as needed for chest pain Qualifiers: Chest pain type: chest pain due to myocardial ischemia Ischemic chest pain type: stable angina pectoris Qualified Code(s): I20.8 - Other forms of angina pectoris (2) HTN (hypertension) Current visit: No Status: Acute Patient presented with systolic greater than 200-we will continue with home medications-we will give hydralazine for blood pressure greater than 180 Qualifiers: Hypertension type: essential hypertension Qualified Code(s): I10 - Essential (primary) hypertension (3) CKD (chronic kidney disease) stage 2, GFR 60-89 ml/min Current visit: Yes Status: Acute Current creatinine 0.98 We will continue to monitor Monitor intake and output daily weights Avoid nephrotoxins (4) DVT prophylaxis Current visit: Yes Status: Acute Lovenox [facility] Internal Medicine - H&P: HPI Chief complaint: HTN,CP Admitted From: Emergency Dept Plans for Post Hospital Care: Home History of present illness: Ms. Kunz is a 51 year old female past medical history hypertension days to kidney disease. Patient was in Dr. Morillo's office this morning for a routine check for blood pressure. She was referred to the emergency room by Dr. Morillo this morning when she had elevated blood pressure of 200. For the past 6 months patient has been experiencing dyspnea and chest pain on exertion. She describes chest pain as pressure which is nonradiating it is midsternal at times occurring at right sided chest. The pain was relieved with rest. She states that the pain mostly occurs in the afternoon and evening when she is most active. She did have a nuclear stress test in February 2016 which was okay per patient. She was supposed to get cardiac catheterization twice however this was not completed. She states that her brother has had similar symptoms and had a recent cardiac catheterization with stent placements. She denies any fevers chills nausea vomiting abdominal pain. Presently she is chest pain-free. I did review this case with Dr. Lopez who agrees with plan Past Med Surg Social Fam HX - Past Medical History Medical history: hypertension, renal disease Psychiatric history: anxiety, depression - Past Surgical History Surgical History: other - Social History Smoking Status: Never smoker Smokeless Tobacco Status: No Alcohol use: none Drug use: none - Family History Mother Hx Family Cardiac Disorders: Yes (CARDIAC DISEASE.) Father Hx Family Respiratory Disorders: Yes (COPD.) Internal Medicine - H&P: Meds Amlodipine Besylate 10 mg PO DAILY 07/04/16 [History] hydroCHLOROthiazide [Hydrochlorothiazide] 25 mg PO DAILY 07/04/16 [History] Aspirin 81 mg PO DAILY #30 tab.chew 07/18/16 [Rx] Ferrous Sulfate [Iron] 325 mg PO DAILY 05/24/17 [History] Metoprolol [Lopressor] 50 mg PO BID 05/24/17 [History] cloNIDine HCl [CloNIDine HCl] 0.1 mg PO QPM 05/24/17 [History] 3 Allergy/AdvReac Type Severity Reaction Status Date / Time dexamethasone [From Decadron] AdvReac Chest Pain Verified 05/24/17 09:36 All Systems PM: A 10-system review of systems was performed and is negative for pertinent findings except as documented above in the HPI. - Constitutional Constitutional: no chills, no fever(s), no night sweats - EENT Eyes: no change in vision, no discharge, no pain, no photophobia Nose, mouth and throat: no dysphagia, no nasal discharge, no neck pain, no sore throat - Cardiovascular Cardiovascular ROS IM: chest pain - Respiratory Respiratory: dyspnea on exertion - Gastrointestinal Gastrointestinal: no abdominal pain, no diarrhea, no hematemesis, no hematochezia, no melena, no nausea, no vomiting - Genitourinary Genitourinary: no change in urinary stream, no dysuria, no flank pain, no hematuria - Musculoskeletal Musculoskeletal ROS IM: no numbness, no tingling - Integumentary Integumentary IM: no rash, no unusual bruising - Neurological Neurological ROS: no confusion, no convulsions, no focal weakness, no numbness, no tingling, no tremor(s) - Hematologic/Lymphatic Hematologic/Lymphatic: no easy bruising - Constitutional Vitals: Temp Pulse Resp BP Pulse Ox 97.8 F 71 16 188/118 99 05/24/17 10:55 05/24/17 10:55 05/24/17 10:55 05/24/17 10:55 05/24/17 10:55 General appearance: Present: A&O X 3 - Head Head exam: Present: atraumatic, normocephalic - Eye Eye exam: Present: PERRL, conjuntiva pink, sclera anicteric Pupils: Present: PERRL - Neck Neck exam general surgery: Present: supple, trachea midline. Absent: lymphadenopathy - Respiratory Respiratory exam: Present: CTAB. Absent: accessory muscle use, rales, rhonchi, wheezes - Cardiovascular Cardiovascular exam: Present: RRR, +S1, +S2. Absent: diastolic murmur, gallop, rubs, systolic murmur - GI/Abdominal GI/Abdominal exam: Present: normal bowel sounds, soft, no peritoneal signs. Absent: distended, tenderness - Extremities Exam Extremities exam: Present: warm, radial pulses palpable and symmetrical. Absent : calf tenderness, cyanotic, pedal edema - Neurological Exam Neurological exam: Present: CN II-XII intact, oriented X3, no focal deficits. Absent: pronater drift, facial droop, speech deficit - Skin Skin exam: Present: dry, intact Internal Med - H&P Results - Labs CBC & Chem 7: 05/24/17 02:40 05/24/17 02:40 Labs: Cardiac Enzymes 05/24/17 Range/Units 12:27 Troponin I < 0.03 (< 0.04) ng/mL - EKG Data EKG shows normal: sinus rhythm - EKG Data Prior EKG available for review: yes When compared to previous EKG: there is no significant change - Diagnostic Studies Other Images Additional comments: Chest X-Ray 05/24/17 09:13 IMPRESSION: 1. No active pulmonary disease. D/ / Rod Torres MD / Rod Torres MD Interpreting Provider: Rod Torres MD <Kevin Lopez P - Last Filed: 05/24/17 21:16> Date of Encounter: 05/24/17 Internal Medicine - H&P: HPI History of present illness: Ms. Kunz is a 51 year old female All Systems PM: A 10-system review of systems was performed and is negative for pertinent findings except as documented above in the HPI. - Constitutional Vitals: Temp Pulse Resp BP Pulse Ox 98.1 F 77 14 119/61 98 05/24/17 19:44 05/24/17 19:44 05/24/17 19:44 05/24/17 19:44 05/24/17 19:44 Internal Med - H&P Results - Labs CBC & Chem 7: 05/24/17 02:40 05/24/17 02:40 Labs: Cardiac Enzymes 05/24/17 05/24/17 Range/Units 12:27 17:44 Troponin I < 0.03 < 0.03 (< 0.04) ng/mL - Attending Attestation I examined this patient and my medical decision-making was reviewed with the Resident Physician/FUNCTIONAL SUPPORT ANALYST. I agree with the documented findings, disposition and treatment plan as described except to the extent set forth below. 51/female Admitted with intermittent chest pain. Evaluated at cardiology office and sent for further evaluation. Previously twice she was scheduled for coronary catheterization. We will get opinion from cardiology for further recommendations.
--- NOTE | 2017-05-24 13:57 | Cardiology Consult Note ---
<Jayda Fermin Jose Miguel - Last Filed: 05/24/17 14:10> Date of Encounter: 05/24/17 Time of Encounter: 13:30 Assessment and Plan (1) Unstable angina Current Visit: Yes Status: Acute Symptoms concerning for unstable angina. Troponin negative x2. No acute ischemic ECG changes noted. Negative nuclear stress test 02/2016. EF 65% per TTE 2016. Risk factors for CAD include: significant family history (mother WA in 40's s/p 4vCABG, brother with recent PCI), HTN, and HLD. Recommend LHC with possible PCI; alternatives, risks, and benefits discussed and she is agreeable to proceed. Ideally optimize BP control prior to LHC, will plan for 05/25/17--pt. may have breakfast. Further recommendations pending LHC. (2) HTN (hypertension) Current Visit: Yes Status: Acute Poorly controlled as outpatient >1 year despite medical therapy. Continue to titrate antihypertensives accordingly. Qualifiers: Hypertension type: essential hypertension Qualified Code(s): I10 - Essential (primary) hypertension (3) CKD (chronic kidney disease) stage 2, GFR 60-89 ml/min Current Visit: Yes Status: Acute Kidney function stable today. Will start IVF at midnight for hydration prior to LHC. Closely monitor kidney function. Discussion w patient/family: The assessment and plan as outlined above was discussed with the patient and/or family members who expressed understanding and agreement. All questions were answered. Thank you for involving us in the care of your patient. Please call with any questions. The patient will be discussed and reviewed with Dr. Elaine; changes to be made accordingly. History of Present Illness Consult date: 05/24/17 Requesting physician: Lorie Toledo Consult reason: Chest pain Chief complaint: Chest pain History of present illness: Ms. Kunz is a 51 year old female with PMHx significant for HTN, CKD, and HLD who presented to the ED from [employer] office due to severe hypertension, 220 /118. Patient reports that blood pressures have been poorly controlled over the past year despite medical therapy. She also reports intermittent chest "squeezing" particular with exertion over the past year; however occurring more frequently over the past 3 months. Pain is typically worse in the evening hours and is exacerbated with exertion and when carrying heavy objects. Pain improves with rest. She is noted to have a significant family history for CAD including her mother who had her first WA in 40's and is now s/p 4vCABG and her brother who had recent PCI. Upon arrival to ED, troponin negative and no ischemic findings were noted on the ECG. Prior CV testing includes: TTE 07/14/16: EF 65%, no significant valvular dysfunction, mild LVDD, normal wall motion Nuclear stress test 02/25/16: perfusion imaging negative for ischemic or infact, gated EF=70% Past Med Surg Social Fam HX - Past Medical History Attestation: Yes The following information was validated with the patient. Source: patient Medical history: hyperlipidemia, hypertension, renal disease Psychiatric history: anxiety, depression - Past Surgical History Surgical History: other - Social History Smoking Status: Never smoker Smokeless Tobacco Status: No Alcohol use: none Drug use: none - Family History Mother Hx Family Cardiac Disorders: Yes (WA in 40s, s/p 4vCABG, AAA stents, carotid disease) Father Hx Family Respiratory Disorders: Yes (COPD.) Medications and Allergies Amlodipine Besylate 10 mg PO DAILY 07/04/16 [History] hydroCHLOROthiazide [Hydrochlorothiazide] 25 mg PO DAILY 07/04/16 [History] Aspirin 81 mg PO DAILY #30 tab.chew 07/18/16 [Rx] Ferrous Sulfate [Iron] 325 mg PO DAILY 05/24/17 [History] Metoprolol [Lopressor] 50 mg PO BID 05/24/17 [History] cloNIDine HCl [CloNIDine HCl] 0.1 mg PO QPM 05/24/17 [History] 3 Allergy/AdvReac Type Severity Reaction Status Date / Time dexamethasone [From Decadron] AdvReac Chest Pain Verified 05/24/17 09:36 All Systems Review: A 10-system review of systems was performed and is negative for pertinent findings except as documented above in the HPI. - Cardiovascular Cardiovascular: as per HPI Physical Examination Vital Signs, Last 4 Hours Temp Pulse Resp BP Pulse Ox 05/24/17 10:55 97.8 F 71 16 188/118 99 05/24/17 10:18 72 14 154/94 96 General: Conversant, No Apparent Distress HEENT: Atraumatic, Normocephaly, Mucus Membranes Moist Neck: No JVD Cardiac: Reg Rate and Rhythm, Normal S1 and S2 Lungs: Normal Breath Sounds Neuro: Alert and responsive Abdomen: Soft Skin: No rashes noted on visualized skin Musculoskeletal: No Chest Wall Tenderness Extremities: No Edema, Normal Pulses Results 05/24/17 02:40 05/24/17 02:40 Lab Results 05/24/17 12:27 Troponin I < 0.03 Active Medications Acetaminophen (Tylenol) 650 mg PO Q6HR PRN PRN Reason: Mild Pain (1-3) Stop: 11/23/17 12:17 Amlodipine Besylate (Norvasc) 10 mg PO DAILY [facility] Stop: 11/24/17 09:01 Aspirin (Aspirin) 81 mg PO DAILY [facility] Stop: 11/24/17 09:01 Atorvastatin Calcium (Lipitor) 40 mg PO HS [facility] Stop: 11/23/17 21:01 Clonidine HCl (Clonidine Hcl) 0.1 mg PO QPM [facility] Stop: 11/23/17 18:01 Enoxaparin Sodium (Lovenox) 40 mg SQ 0700 [facility] PRN Reason: Protocol Stop: 11/24/17 07:01 Ferrous Sulfate (Ferrous Sulfate) 325 mg PO DAILY [facility] Stop: 11/24/17 09:01 Hydrochlorothiazide (Hydrochlorothiazide) 25 mg PO DAILY [facility] PRN Reason: Protocol Stop: 11/24/17 09:01 Metoprolol Tartrate (Lopressor) 50 mg PO BID [facility] Stop: 11/23/17 21:01 Naloxone HCl (Narcan) 0.4 mg IVP Q2MIN PRN PRN Reason: Opioid Reversal Stop: 11/23/17 12:17 Nitroglycerin (Nitroglycerin) 0.4 mg SL Q5MIN PRN PRN Reason: Chest Pain Stop: 11/23/17 12:20 Ondansetron HCl (Zofran) 4 mg IVP Q8HR PRN PRN Reason: Nausea And Vomiting Stop: 11/23/17 12:17 - Imaging and Cardiology Stress Test: report reviewed Echo: report reviewed - EKG Interpretation EKG results cardiology: personally reviewed Consult Discharge Plan - Plan Referrals: Antonietta Busch CNP [Primary Care Provider] - <Rachel Elaine - Last Filed: 05/24/17 16:22> Date of Encounter: 05/24/17 - Attending Attestation I examined this patient and my medical decision-making was reviewed with the CITY [employer] AUDITOR. I agree with the documented findings, disposition and treatment plan as described. Ms. Kunz presents with both typical and atypical chest pain symptoms over the past few months which is be calm more frequent recently. Risk factors for cardiovascular disease include hypertension, dyslipidemia and chronic kidney disease stage II. She also has significant family history of premature CAD. Also noted is uncontrolled blood pressures over the past year. Certainly it is possible that her chest pain symptoms are in part a result of uncontrolled hypertension. However, give her escalating symptoms, risk factors and significant family history of premature CAD we have recommended proceeding with a heart catheterization out of concern for unstable angina. The risks, benefits and alternatives of the procedure were discussed with the patient. She expressed understanding and verbalized agreement to proceed. We will make attempts to better control her blood pressure prior to cardiac catheterization. May also need to consider renal artery angiogram versus ultrasound. Will be discussed with interventional cardiology. Gentle renal hydration recommended prior to LHC with close monitoring of kidney function. Assessment and Plan Discussion w patient/family: The assessment and plan as outlined above was discussed with the patient and/or family members who expressed understanding and agreement. All questions were answered. Thank you for involving us in the care of your patient. Please call with any questions. History of Present Illness History of present illness: Ms. Kunz is a 51 year old female All Systems Review: A 10-system review of systems was performed and is negative for pertinent findings except as documented above in the HPI. Physical Examination Vital Signs, Last 4 Hours Temp Pulse Resp BP Pulse Ox 05/24/17 15:25 69 17 132/81 97 05/24/17 14:13 97.9 F 68 16 180/105 98 Results 05/24/17 02:40 05/24/17 02:40 Lab Results 05/24/17 12:27 Troponin I < 0.03
[2017-05-24] MEDS: Isosorbide MONOnitrate (24 HR) 30 MG TAB.ER.24H PO SCH (14:42)
[2017-05-24] MEDS: cloNIDine HCl 0.1 MG TABLET PO SCH (17:40)
--- NOTE | 2017-05-24 20:26 | Electrocardiograph Report ---
[place] [id number] Test Date: 2017-05-24 Pat Name: Olivia Kunz Department: 115 Room: 3A23 Gender: F Timber Hewer: JUAN : 1965 Requested By: Josafat De Los Santos Order Number: [id number] Reading MD: Rc Gonzalez MD Measurements Intervals Protem Rate: 67 P: -7 NV: 155 QRS: 37 QRSD: 79 T: 15 QT: 392 QTc: 407 Interpretive Statements SINUS RHYTHM Electronically Signed On 05-24-2017 20:24:22 EST by Rc Gonzalez MD
[2017-05-25] MEDS ORDERED: 0.9 % Sodium Chloride 1,000 ML IVC SCH (00:30)
[2017-05-25 01:06] LABS: Basophils % 0.7 %; Eosinophils # 0.2 K/mcL (0.0-0.6); Eosinophils % 2.8 %; Hematocrit 40.9 % (35.3-44.9); Hemoglobin 13.2 g/dL (11.5-15.4); Immature Granulocytes % 0.2 % (0-4); Lymphocytes # 2.1 K/mcL (0.6-4.6); Mean Corpuscular HGB Conc 32.3 g/dL (31.6-35.5); Mean Corpuscular Hemoglobin 27.4 pg (28.0-33.3); Mean Platelet Volume 10.3 fL (9.4-12.4); Monocytes # 0.5 K/mcL (0.0-1.3); Monocytes % 8.7 %; Neutrophils # 3.3 K/mcL (1.6-8.9); Platelet Count 232 K/mcL (140-400); Red Blood Count 4.81 M/mcL (3.82-4.97); Red Cell Distribution Width 13.8 % (11.5-14.5); Segmented Neutrophils % 53.6 %
[2017-05-25 02:09] LABS: BUN/Creatinine Ratio 17 (6-26); Blood Urea Nitrogen 18 mg/dL (6-20); Calcium 9.2 mg/dL (8.6-10.3); Carbon Dioxide 27 mEq/L (23-29); Chloride 105 mEq/L (98-107); Chol/HDL Ratio 6.1 (0-4.9); Cholesterol 220 mg/dL (< 200); Glucose 101 mg/dL (70-105); HDL Cholesterol 36 mg/dL (40-59); LDL Cholesterol,Calculated 159 mg/dL (0-99); Osmolality,Calculated 294 (280-300); Sodium 141 mEq/L (136-145); Triglycerides 125 mg/dL (< 150); eGFR For African Americans > 60 (> 60); eGFR For Non-African Americans 55 (> 60)
[2017-05-25] MEDS: *HR* Enoxaparin 40 MG/0.4 ML SYRINGE SQ SCH (06:52)
[2017-05-25] MEDS ORDERED: Heparin 1,000 UNIT, 0.9 % Sodium Chloride 500 ML INARTERIAL ONE (08:30)
[2017-05-25] MEDS ORDERED: amLODIPine 5 MG TABLET PO SCH ×2 (09:00→16:00)
[2017-05-25] MEDS: Isosorbide MONOnitrate (24 HR) 30 MG TAB.ER.24H PO SCH (10:12)
[2017-05-25] MEDS: Aspirin 81 MG TAB.CHEW PO SCH (10:12)
[2017-05-25] MEDS: hydroCHLOROthiazide 25 MG TABLET PO SCH (10:12)
[2017-05-25] MEDS: Acetaminophen 325 MG TABLET PO PRN ×2 (10:19→17:34)
--- NOTE | 2017-05-25 11:35 | Internal Med Progress Note ---
Date of Encounter: 05/25/17 Time of Encounter: 11:30 - Assessment and plan (1) Chest pain Current Visit: Yes Status: Acute Assessment and plan: Patient has been doing with chest pain for a few months. She is plan for left heart catheter today. Cardiac enzymes have not been elevated 3. Continue with aspirin and statin. She is also on a beta kinsey. Lipid panel noted. Qualifiers: Chest pain type: chest pain due to myocardial ischemia Ischemic chest pain type: stable angina pectoris Qualified Code(s): I20.8 - Other forms of angina pectoris (2) HTN (hypertension) Current Visit: Yes Status: Acute Assessment and plan: Blood pressure much better improved. I see him during as been added to her regimen. Continue with metoprolol hydrochlorothiazide clonidine. She has IV hydralazine ordered which she has not used. We will continue to monitor and titrate her medications. Based on her blood pressure. Qualifiers: Hypertension type: essential hypertension Qualified Code(s): I10 - Essential (primary) hypertension (3) CKD (chronic kidney disease) stage 2, GFR 60-89 ml/min Current Visit: Yes Status: Acute Assessment and plan: Stable. continue to monitor. (4) DVT prophylaxis Current Visit: Yes Status: Acute Assessment and plan: Lovenox. - Subjective Interval history: No acute events.Blood pressure is much better improved. She spent for left heart catheter today. She complains of no chest pain this morning. Cardiac enzymes are unremarkable. - Constitutional Vitals: Temp Pulse Resp BP Pulse Ox 97.6 F 68 16 156/83 96 05/25/17 10:43 05/25/17 10:43 05/25/17 10:43 05/25/17 10:43 05/25/17 10:43 General appearance: Present: A&O X 3 Exam: GEN: NAD CVS: RRR. S1, S2, No m/r/g RESP: CTAB ABD: Soft, NT, ND, +BS EXT: No edema. 2+ DP. No rashes NEURO: Nonfocal Internal Medicine: Result - Labs CBC & Chem 7: 05/25/17 00:46 05/25/17 00:46 Labs: Short CBC 05/25/17 Range/Units 00:46 WBC 6.1 (4.3-11.1) K/mcL Hgb 13.2 (11.5-15.4) g/dL Hct 40.9 (35.3-44.9) % Plt Count 232 (140-400) K/mcL Neutrophils # 3.3 (1.6-8.9) K/mcL BMP 05/25/17 00:46 Sodium 141 Potassium 4.0 Chloride 105 Carbon Dioxide 27 BUN 18 Creatinine 1.06 Glucose 101 Calcium 9.2 Cardiac Enzymes 05/24/17 05/24/17 05/25/17 Range/Units 12:27 17:44 00:46 Troponin I < 0.03 < 0.03 < 0.03 (< 0.04) ng/mL - ABG Interpretation ABG results: PT/INR, D-dimer PT 11.9 Seconds (9.4-12.1) 05/24/17 02:40 Consult Discharge Plan - Plan Referrals: Antonietta Busch, [employer] FINISH[employer] SUPERVISOR [Primary Care Provider] -
[2017-05-25] MEDS ORDERED: 0.9 % Sodium Chloride 1,000 ML ONE ×2 (14:55→15:16)
[2017-05-25] MEDS ORDERED: *HR* Heparin 10,000 UNIT/10 ML VIAL ONE (14:56)
[2017-05-25] MEDS ORDERED: Verapamil 5 MG/2 ML VIAL ONE (15:00)
[2017-05-25] MEDS ORDERED: Nitroglycerin 1,000 MCG/10 ML VIAL IV ONE (15:00)
[2017-05-25] MEDS ORDERED: *HR* FentaNYL (PF) 100 MCG/2 ML VIAL ONE (15:00)
[2017-05-25] MEDS ORDERED: *HR* Midazolam HCl 2 MG/2 ML VIAL ONE (15:00)
--- NOTE | 2017-05-25 15:27 | Pre-Sedation Evaluation ---
Pre-sedation evaluation - Pre-sedation checklist Date of procedure: 05/25/17 Procedure: [facility] Recent Vitals: Last Vital Signs Temp 97.2 F L 05/25/17 14:58 Pulse 90 05/25/17 14:58 Resp 16 05/25/17 14:58 BP 142/82 05/25/17 14:58 Pulse Ox 97 05/25/17 14:58 H&P (including ROS) documented in medical record: Yes Previous reaction to sedatives/anesthetics: No Dietary Status: NPO after Midnight Dentition: poor dentition ASA Classification *see protocol: CLASS II-Mild systemic disease Plan of Care: Pt appropriate candidate for procedure/moderate/conscious sedation , Risks/benefits of procedure/sedation discussed w/ patient/family
[2017-05-25] MEDS ORDERED: Tirofiban 12.5 MG/250ML 12.5 MG/250 ML BAG ONE (15:48)
[2017-05-25] MEDS ORDERED: *HR* Ticagrelor 90 MG TABLET ONE (16:01)
[2017-05-25] MEDS ORDERED: *HR* HYDROcodone/Acet 5/325 mg TABLET PO PRN (16:12)
--- NOTE | 2017-05-25 16:22 | Invasive Diagnostic Lab Proc ---
Name: Olivia Kunz Date of Study: 05/25/2017 Date: 1965 Ht: 61.8in Medical Record#: [id number] Age: 51 Wt: 154.76lb Gender: Female BSA: 1.71 Order #: [id number] BMI: 28.48 Physicians Procedure Physician: Rc Gonzalez MD, [facility] Referring MD: Referring MD: Staff Name Position Time In [facility] RT (R) Scrub 03:11 PM Noah Velasquez RN Pai Gow Manager 03:11 PM Darleen Bentley RN Monitor 03:11 PM Indications Indication Unstable Angina Procedures Performed Procedure L HRT ARTERY/VENTRICLE ANGIO PRQ CARD BENY STENT W/ANGIO 1 VSL Pre-Procedure Checklist Informed consent is complete signed and on chart. H&P is on chart. ID band is on and ID verified with patient. Patient NPO for procedure The procedure was described for the patient and questions were answered. Blood Pressure: 160/93 ECG is on chart. Rhythm: NSR Plan of Care Patient will tolerate the procedure without complications. Adequate level of comfort will be maintained. Hemodynamics will remain stable Patient will recover from procedure without complications. Respiratory function will be maintained. Cardiac rhythm will remain stable. Patient temperature will be maintained. Patient and/or family have verbalized understanding of the procedure. Patient Education Chief Complaint/Reason for Test: Cardiac Cath Developmental Category: Adult (18-64 years) Developmentally Appropriate for Age: Yes Learning Barriers: None Education Needs: Procedure Education Method: Verbal Information Taught: Cardiac Cath Educational Evaluation: Able to repeat information Intravenous Access Time IV Size Location DC'd Fluid/Drip Rate Units RN 03:32 PM 20g 1 /" Patent On Arrival Rt Arm 0.9NaCl 25 ml Allergies dexamethasone Vital Signs Time BP (mmHg) HR (bpm) O2 Sat. RR (bpm) LOC 03:31 PM / % 5 = Fully awake and oriented or at pre-proc level 03:31 PM / % 4 = Oriented but drowsy 03:46 PM / % 4 = Oriented but drowsy 03:13 PM 160 / 93 62 99 % 17 03:18 PM 162 / 86 61 100 % 17 03:23 PM 139 / 84 59 100 % 19 03:28 PM 116 / 74 58 99 % 14 03:33 PM 124 / 75 66 100 % 11 03:36 PM 122 / 67 69 98 % 13 03:38 PM 116 / 67 68 99 % 21 03:43 PM 121 / 71 64 99 % 13 03:48 PM 132 / 76 65 100 % 13 03:53 PM 132 / 76 63 100 % 20 03:58 PM 136 / 73 62 100 % 20 04:03 PM 140 / 75 61 100 % 11 03:54 PM / % 4 = Oriented but drowsy Procedural Medications Time Medication Dose Units Method Given By 03:20 PM Versed 2 mg Intravenous Noah Velasquez RN 03:20 PM Fentanyl 50 mcg Intravenous Noah Velasquez RN 03:33 PM Lidocaine 2% 0.5 ml Subcutaneous Rc Gonzalez MD, FAC 03:33 PM Heparin 4000 units Intraarterial Rc Gonzalez MD 03:33 PM Nitroglycerin 200 mcg Intraarterial Rc Gonzalez MD 03:33 PM Verapamil 2.5 mg Intraarterial Rc Gonzalez MD, FAC 03:49 PM Aggrastat Bolus: 33 ml Intravenous Noah Velasquez RN 03:49 PM Aggrastat 12.5mg/250ml 12 ml Intravenous Noah Velasquez RN 03:50 PM Nitroglycerin 200 mcg Intracoronary Rc Gonzalez MD 04:02 PM Brilinta 180 mg Orally Noah Velasquez RN ASA Classification: CLASS II- Mild systemic disease (i.e. well-controlled diabetes, hypertension, asthma, cigarette smoking) Sree Score Preprocedure Postprocedure Activity 2- Moves 4 extremities sustained head lift Activity 2- Moves 4 extremities sustained head lift Circulation 2- SBP +/= 20 points of pre-anesthetic level Circulation 2- SBP +/= 20 points of pre-anesthetic level Consciousness 2- Awake and alert oriented x 3 Consciousness 2- Awake and alert oriented x 3 O2 Saturation 2- Able to maintain O2 satruation of 92% on room air O2 Saturation 2- Able to maintain O2 satruation of 92% on room air Respiratory 2- Able to deep breathe and cough well Respiratory 2- Able to deep breathe and cough well Total Score 10 Total Score 10 Contrast Agent: Isovue Diagnostic Contrast: 107 ml Total Contrast: 107 ml Fluoro Dose: 285 mGy Activated Clotting Time Time Seconds to Clot 03:51 PM 301 Procedure Log Time Note Enter By 03:11 PM Pt arrived to cytogenetics laboratory manager 2 at 15:11 ejohnson 03:11 PM Susan Fontanez RT (R) Position: Scrub Time in: 15:11 ejohnson 03:11 PM Noah Velasquez RN Position: Pai Gow Manager Time in: 15:11 ejohnson 03:11 PM Darleen Bentley RN Position: Monitor Time in: 15:11 ejohnson 03:11 PM Patient charges- Angio tray pack, Navilyst 3mm J, Pulse Oximetry and ACIST tubing and transducer ejohnson 03:11 PM IV Supplies used: J loop Angio Cath. ejohnson 03:11 PM Case Delayed No ejohnson 03:12 PM Hair removed from procedure site in procedure lab using clippers. Right wrist and bilateral groin prepped with Chloraprep by sites, Susan RT , safety strap applied then patient was draped. Skin intact. ejohnson 03:12 PM Physician arrived 15:12 ejohnson 03:12 PM ASA Class CLASS II- Mild systemic disease (i.e. well-controlled diabetes, hypertension, asthma, cigarette smoking) ejohnson 03:12 PM Meet and greet completed ejohnson 03:12 PM Sign in performed according to hospital policy. ejohnson 03:12 PM Procedure start 15:12 ejohnson 03:13 PM Recorded ECG: HR=76 Condition=Condition 1 03:13 PM Vitals capture started with the following parameters, Patient=Adult, Interval=5 min, Initial Eemdtvhc=104 mmHg, Deflation Rate=5 mmHg, Cuff placed on Right Leg 03:13 PM HR=62 bpm, MEKB=884/93 mmhg, SpO2=99 %, Resp=17 B/min 03:18 PM HR=61 bpm, HINL=056/86 mmhg, IaX2=358 %, Resp=17 B/min 03:20 PM Time: 15:20 Versed 2 mg Intravenous Given by Noah Velasquez RN ejohnson 03:21 PM Time: 15:20 Fentanyl 50 mcg Intravenous Given by Noah Velasquez RN ejohnson 03:21 PM Recorded ECG: HR=61 Condition=Condition 1 03:23 PM HR=59 bpm, PEJA=553/84 mmhg, KaY3=307.0 %, Resp=19 B/min, Comment=SR 03:28 PM HR=58 bpm, ETTP=881/74 mmhg, SpO2=99.0 %, Resp=14 B/min, Comment=SR 03:31 PM Time out performed according to hospital policy ejohnson 03:31 PM Time: 15:31 Patient comfortable and pain free: Yes ejohnson 03:31 PM Time: 15:31LOC: 5 = Fully awake and oriented or at pre-proc level ejohnson 03:33 PM Time: 15:33 0.5 ml Lidocaine 2% to right radial Subcutaneous Given by Rc Gonzalez MD, [facility] ejohnson 03:33 PM Access obtained by percutaneous puncture. 6Fr 10cm Terumo Glidesheath sheath placed in right Radial artery. [id number] ejohnson 03:33 PM Time: 15:33 Patient given 4,000 units Heparin, 200 mcg Nitroglycerin, and 2.5 mg Verapamil Intraarterial by Rc Gonzalez MD, [facility]. This is given to reduce risk of vessel spasm and thrombosis. ejohnson 03:33 PM HR=66 bpm, NEQE=620/75 mmhg, ArO1=827.0 %, Resp=11 B/min, Comment=SR 03:34 PM 5Fr TIG catheter inserted over the wire [facility] ejohnson 03:35 PM Recorded Pressure: Ao, HR=69, Condition=Condition 1 (Aorta) Ao 93/67/80 03:35 PM RCA angiography performed in multiple views. ejohnson 03:35 PM Coronary Dominance: right ejohnson 03:35 PM NIBP STAT measurement started. 03:36 PM HR=69 bpm, HIKK=807/67 mmhg, SpO2=98.0 %, Resp=13 B/min, Comment=SR 03:37 PM Recorded Pressure: LV, HR=76, Condition=Condition 1 (Left Ventricle) LV 112/-1/1 03:37 PM Catheter selectively placed in left ventricle ejohnson 03:38 PM Bolus angiogram of left Ventricle complete: 10 ml/sec for a total of 20 mls ejohnson 03:38 PM Recorded Pressure: LV, Ao, HR=67, Condition=Condition 1 (Left Ventricle) LV 104/-4/4, (Aorta) Ao 99/54/72 03:38 PM Catheter removed ejohnson 03:38 PM HR=68 bpm, NTYD=687/67 mmhg, SpO2=99.0 %, Resp=21 B/min, Comment=SR 03:39 PM 5Fr FL 3.5 catheter inserted over the wire [id number] ejohnson 03:41 PM LCA angiography performed in multiple views. ejohnson 03:42 PM Recorded Pressure: Ao, HR=66, Condition=Condition 1 (Aorta) Ao 98/71/84 03:43 PM Lesion found in Proximal LAD. Pre Stenosis: 90 Pre MARCE Flow: 3: Complete and Brisk Flow/Perfusion ejohnson 03:43 PM Proximal Left Anterior Descending Coronary Artery with 90% stenosis. ejohnson 03:43 PM HR=64 bpm, TVFG=563/71 mmhg, SpO2=99.0 %, Resp=13 B/min, Comment=SR 03:44 PM 6Fr CLS 3.0 Runway guide catheter was used to cannulate the PCI vessel successfully. reused? No ejohnson 03:44 PM Inflation device was opened. ejohnson 03:46 PM Recorded Pressure: Ao, HR=65, Condition=Condition 1 (Aorta) Ao 114/66/87 03:46 PM Time: 15:31LOC: 4 = Oriented but drowsy ejohnson 03:46 PM Time: 15:31 Patient comfortable and pain free: Yes ejohnson 03:48 PM HR=65 bpm, SITU=728/76 mmhg, YeU1=574.0 %, Resp=13 B/min, Comment=SR 03:48 PM .014 [place] 190cm guide wire across target lesion- successful. reused? No ejohnson 03:49 PM 2.5 mm x 20 mm Emerge Monorail balloon across target lesion- successful. reused? No ejohnson 03:49 PM Time: 15:49 Aggrastat Bolus: 33 ml Intravenous Given by Noah Velasquez RN Bales pump ejohnson 03:49 PM Time: 15:49 Aggrastat 12.5mg/250ml 12 ml Intravenous Given by Noah Velasquez RN Bales pump ejohnson 03:50 PM Time: 15:50 Nitroglycerin 200 mcg Intracoronary Given by Rc Gonzalez MD ejohnson 03:51 PM 2.5 mm x 20 mm Emerge Monorail balloon across target lesion- successful. reused? No ejohnson 03:51 PM At 15:51 the ACT was 301 seconds. ejohnson 03:51 PM Balloon inflated @ 10 pepper for 15 seconds ejohnson 03:53 PM Balloon catheter removed intact. ejohnson 03:53 PM 3.5mm x 28mm Synergy drug-eluting stent across target lesion- successful Lot #[id number] ejohnson 03:53 PM HR=63 bpm, NZVV=028/76 mmhg, XyU6=778.0 %, Resp=20 B/min, Comment=SR 03:54 PM Time: 15:46 Patient comfortable and pain free: Yes ejohnson 03:54 PM Time: 15:46LOC: 4 = Oriented but drowsy ejohnson 03:55 PM Stent deployed @ 12 pepper for 26 seconds ejohnson 03:55 PM Recorded Pressure: Ao, HR=69, Condition=Condition 1 (Aorta) Ao 100/74/87 03:56 PM Stent delivery system removed intact. ejohnson 03:56 PM Recorded Pressure: Ao, HR=64, Condition=Condition 1 (Aorta) Ao 126/65/89 03:57 PM 4.0 mm x 8mm NC Trek Rx balloon across target lesion- successful. reused? No ejohnson 03:58 PM Balloon inflated @ 18 pepper for 17 seconds ejohnson 03:58 PM HR=62 bpm, AQAU=034/73 mmhg, FzY3=931.0 %, Resp=20 B/min, Comment=SR 03:59 PM Balloon catheter removed intact. ejohnson 04:00 PM 3.5 mm x 20mm NC Trek Rx balloon across target lesion- successful. reused? No ejohnson 04:00 PM Balloon inflated @ 18 pepper for 17 seconds ejohnson 04:01 PM Balloon catheter removed intact. ejohnson 04:01 PM Guide wire removed intact. ejohnson 04:01 PM Guide catheter removed intact. ejohnson 04:02 PM Time: 16:02 Brilinta 180 mg Orally Given by Noah Velasquez RN ejohnson 04:03 PM Procedure completed at 16:03 ejohnson 04:03 PM HR=61 bpm, AEVV=444/75 mmhg, TjW4=673.0 %, Resp=11 B/min, Comment=SR 04:04 PM Sign out completed: Radiation Dose 285.16 mGy Fluoro Time: 7.7 Isovue 370 - 200ml contrast 107 ml given by Rc Gonzalez MD, [facility]. Complications: NoneCardiac Rehab Consult needed: YesConfirmed administered medications: Yes ejohnson 04:04 PM Isovue 370 - 200ml,1 Bottle(s) used. ejohnson 04:04 PM Arterial sheath pulled, Vasc Band closure device used and was Successful ejohnson 04:05 PM 13 ml air in Vasc Band. ejohnson 04:05 PM Estimated Blood Loss: minimal ejohnson 04:05 PM Post ECG Sinus Bradycardia ejohnson 04:05 PM Post Blood Pressure 140/75 ejohnson 04:05 PM 16:05 Post Pulses Lt PT 1+ ejohnson 04:05 PM Information taught PCI and Vasc Band ejohnson 04:06 PM Education needs Plan of Care and Responsibilities of Patient in Care ejohnson 04:06 PM Learning barriers :None ejohnson 04:06 PM Education Methods Verbal ejohnson 04:06 PM Education evaluation Able to repeat information ejohnson 04:06 PM Site status No bleeding/hematoma - Rt Wrist as reported by Sites, Susan RT (R) at 16:06 ejohnson 04:06 PM Plavix, Effient or Brilinta given Yes ejohnson 04:06 PM Time: 15:54 Patient comfortable and pain free: Yes ejohnson 04:07 PM Time: 15:54LOC: 4 = Oriented but drowsy ejohnson 04:07 PM Delay to floor No ejohnson 04:07 PM Family placed in consult room. ejohnson 04:13 PM Report given to Liz VALENZUELA Pt taken to 3A Room #23. 16:12 ejohnson 04:13 PM Delay to floor No ejohnson 04:13 PM Patient out of room: 16:13 ejohnson Complications Complication None Hemodynamics Pressures Site Systolic/A Wave Diastolic/V Wave Mean AO 93 67 80 LV 112 -1 1 LV 104 -4 4 AO 99 54 72 AO 98 71 84 AO 114 66 87 AO 100 74 87 AO 126 65 89 Post Procedure Information Blood Pressure: 140/75 mmHg Rhythm: Sinus Bradycardia Post procedural instructions were given Closure Device Time Device Success/Fail 05/25/2017 4:04:00 PM Mechanical Compression Successful Site Checks Time Location Status Staff Sheath In? Note 04:06 PM Rt Wrist No bleeding/hematoma Sites, Susan RT (R) Pulses Time Site Pre-Procedure Post-Procedure Note 05/25/2017 3:15:00 PM Bilateral radial 2+ 4:05:00 PM Rt Radial 1+ Updated by Darleen Bentley RN on 05/25/2017 4:14:19 PM Darleen Bentley RN electronically signed on 05/25/2017 4:16:07 PM with status of Final
--- NOTE | 2017-05-25 16:32 | Electrocardiograph Report ---
[place] [id number] Test Date: 2017-05-24 Pat Name: Olivia Kunz Department: 104 Room: 3A23 Gender: F Supervisor Decorating: JACOB : 1965 Requested By: Rogelio Hernandez Order Number: [id number] Reading MD: Rc Gonzalez MD Measurements Intervals [place] Rate: 75 P: -8 FL: 141 QRS: 10 QRSD: 84 T: 15 QT: 367 QTc: 395 Interpretive Statements SINUS RHYTHM MINIMAL VOLTAGE CRITERIA FOR LVH, CONSIDER NORMAL VARIANT Electronically Signed On 05-25-2017 16:30:24 EST by Rc Gonzalez MD
[2017-05-25] MEDS ORDERED: Tirofiban 12.5 MG/250ML 12.5 MG/250 ML BAG IVC SCH (17:30)
[2017-05-25] MEDS: cloNIDine HCl 0.1 MG TABLET PO SCH (19:26)
[2017-05-25] MEDS: *HR* Ticagrelor 90 MG TABLET PO SCH (21:39)
[2017-05-26] MEDS: Acetaminophen 325 MG TABLET PO PRN (03:56)
[2017-05-26 05:35] LABS: BUN/Creatinine Ratio 13 (6-26); Blood Urea Nitrogen 12 mg/dL (6-20); Calcium 9.6 mg/dL (8.6-10.3); Carbon Dioxide 24 mEq/L (23-29); Chloride 103 mEq/L (98-107); Glucose 98 mg/dL (70-105); Osmolality,Calculated 280 (280-300); Potassium 3.7 mEq/L (3.5-5.1); Sodium 135 mEq/L (136-145); eGFR For African Americans > 60 (> 60); eGFR For Non-African Americans > 60 (> 60)
[2017-05-26 06:01] LABS: Basophils % 0.2 %; Eosinophils # 0.1 K/mcL (0.0-0.6); Eosinophils % 1.4 %; Hematocrit 42.2 % (35.3-44.9); Hemoglobin 14.2 g/dL (11.5-15.4); Immature Granulocytes % 0.3 % (0-4); Lymphocytes # 1.2 K/mcL (0.6-4.6); Mean Corpuscular HGB Conc 33.6 g/dL (31.6-35.5); Mean Corpuscular Hemoglobin 28.2 pg (28.0-33.3); Mean Corpuscular Volume 83.7 fL (83.0-100.0); Mean Platelet Volume 10.4 fL (9.4-12.4); Monocytes # 0.8 K/mcL (0.0-1.3); Monocytes % 8.6 %; Neutrophils # 7.1 K/mcL (1.6-8.9); Platelet Count 242 K/mcL (140-400); Red Blood Count 5.04 M/mcL (3.82-4.97); Red Cell Distribution Width 13.6 % (11.5-14.5); Segmented Neutrophils % 76.5 %
[2017-05-26] MEDS: *HR* Enoxaparin 40 MG/0.4 ML SYRINGE SQ SCH (06:50)
[2017-05-26 07:33] VITALS: BP 135/83
[2017-05-26] MEDS: Aspirin 81 MG TAB.CHEW PO SCH (07:37)
[2017-05-26] MEDS: *HR* Ticagrelor 90 MG TABLET PO SCH (07:37)
[2017-05-26] MEDS: Isosorbide MONOnitrate (24 HR) 30 MG TAB.ER.24H PO SCH (07:38)
[2017-05-26] MEDS: hydroCHLOROthiazide 25 MG TABLET PO SCH (07:38)
--- NOTE | 2017-05-26 09:02 | Cardiology Progress Note ---
Date of Encounter: 05/26/17 Time of Encounter: 08:30 Assessment and Plan (1) Unstable angina Current Visit: Yes Status: Acute Symptoms concerning for unstable angina. Troponin negative x2. No acute ischemic ECG changes noted. Negative nuclear stress test 02/2016. EF 65% per TTE 2016. Risk factors for CAD include: significant family history (mother [place] in 40's s/p 4vCABG, brother with recent PCI), HTN, and HLD. [facility] 05/25/17: s/p successful PTCA/BENY to pLAD; otherwise non-obstructive CAD. Post PCI discharge instructions discussed including importance of uninterrupted DAPT (asa + brilinta). 30 day supply of brilinta to be delivered to room prior to discharge. Continue statin and betablocker. Due to headache, will stop Imdur. Start low dose ACEi to improve BP control--recommend BMP in 2 weeks after starting to eval kidney function. Cardiac rehab consulted. Cardiology will sign-off, please call with questions. Will arrange for outpatient follow-up. (2) HTN (hypertension) Current Visit: Yes Status: Acute Poorly controlled as outpatient >1 year despite medical therapy. Continue to titrate antihypertensives accordingly. Low dose ACEi started today, recheck BMP in 2 weeks. Qualifiers: Hypertension type: essential hypertension Qualified Code(s): I10 - Essential (primary) hypertension (3) CKD (chronic kidney disease) stage 2, GFR 60-89 ml/min Current Visit: Yes Status: Acute Kidney function remains stable s/p [facility]. Discussion w patient/family: The assessment and plan as outlined above was discussed with the patient and/or family members who expressed understanding and agreement. All questions were answered. Thank you for involving us in the care of your patient. Please call with any questions. The patient was be discussed and reviewed with Dr. Elaine who agrees with plan as stated above. Subjective Principal diagnosis: Unstable angina Interval history: Seen and examined. Reports dull headache since starting nitrates. No chest pain or discomfort, no issues with right radial cath site. Objective Vital Signs, Last 4 Hours Temp Pulse Resp BP Pulse Ox 05/26/17 06:50 98.4 F 84 14 135/83 97 General: Conversant, No Apparent Distress HEENT: Atraumatic, Normocephaly, Mucus Membranes Moist Cardiac: Reg Rate and Rhythm, Normal S1 and S2 Lungs: Normal Breath Sounds Neuro: Alert and responsive Abdomen: Soft Skin: No rashes noted on visualized skin Musculoskeletal: No Chest Wall Tenderness Extremities: No Edema, Normal Pulses Other: right radial: +2 pulses, no oozing, hematoma, or bleeding at site. Results 05/26/17 04:48 05/26/17 04:48 Lab Results 05/26/17 05/26/17 04:48 04:48 WBC 9.3 D Hgb 14.2 Hct 42.2 Plt Count 242 Sodium 135 L Potassium 3.7 Chloride 103 Carbon Dioxide 24 BUN 12 Creatinine 0.89 Glucose 98 Calcium 9.6 Active Medications Acetaminophen (Tylenol) 650 mg PO Q6HR PRN PRN Reason: Mild Pain (1-3) Stop: 11/23/17 12:17 Last Admin: 05/26/17 03:56 Dose: 650 mg Hydrocodone Bitart/Acetaminophen ([place] 5-325 Mg) 1 tab PO Q4HR PRN PRN Reason: Moderate Pain Stop: 11/24/17 16:13 Amlodipine Besylate (Norvasc) 10 mg PO 1600 [facility] Stop: 11/24/17 16:01 Last Admin: 05/25/17 17:32 Dose: 10 mg Aspirin (Aspirin) 81 mg PO DAILY [facility] Stop: 11/24/17 09:01 Last Admin: 05/26/17 07:37 Dose: 81 mg Atorvastatin Calcium (Lipitor) 40 mg PO HS [facility] Stop: 11/23/17 21:01 Last Admin: 05/25/17 21:39 Dose: 40 mg Clonidine HCl (Clonidine Hcl) 0.1 mg PO QPM [facility] Stop: 11/23/17 18:01 Last Admin: 05/25/17 19:26 Dose: Not Given Enoxaparin Sodium (Lovenox) 40 mg SQ 0700 [facility] PRN Reason: Protocol Stop: 11/24/17 07:01 Last Admin: 05/26/17 06:50 Dose: Not Given Ferrous Sulfate (Ferrous Sulfate) 325 mg PO DAILY [facility] Stop: 11/24/17 09:01 Last Admin: 05/26/17 07:38 Dose: 325 mg Hydralazine HCl (Hydralazine) 10 mg IVP Q6HR PRN PRN Reason: BP greater than 160/90 Stop: 11/23/17 14:26 Hydrochlorothiazide (Hydrochlorothiazide) 25 mg PO DAILY [facility]LL PRN Reason: Protocol Stop: 11/24/17 09:01 Last Admin: 05/26/17 07:38 Dose: 25 mg Lisinopril (Zestril) 5 mg PO DAILY [facility]LL PRN Reason: Protocol Stop: 11/25/17 09:01 Metoprolol Tartrate (Lopressor) 50 mg PO 0900,1600 [facility] Stop: 11/24/17 16:01 Last Admin: 05/26/17 07:38 Dose: 50 mg Naloxone HCl (Narcan) 0.4 mg IVP Q2MIN PRN PRN Reason: Opioid Reversal Stop: 11/23/17 12:17 Nitroglycerin (Nitroglycerin) 0.4 mg SL Q5MIN PRN PRN Reason: Chest Pain Stop: 11/23/17 12:20 Ondansetron HCl (Zofran) 4 mg IVP Q8HR PRN PRN Reason: Nausea And Vomiting Stop: 11/23/17 12:17 Ticagrelor (Brilinta) 90 mg PO BID [facility] Stop: 11/24/17 21:01 Last Admin: 05/26/17 07:37 Dose: 90 mg - Imaging and Cardiology Cardiac cath: report reviewed Other Results: 12 hour tele: avg HR=75 SR. No significant event noted. - EKG Interpretation EKG results cardiology: personally reviewed Consult Discharge Plan - Plan Additional Instructions: RISK FACTORS: STOP SMOKING: If you smoke, STOP. Smoking or tobacco use significantly increases your risk of heart disease because nicotine causes the arteries to narrow or constrict. It also causes fats to stick to the artery. Your chances of having a heart attack are greatly increased if you continue to smoke. For more information, call the education line for smoking cessation 9-578-MNQFURL EAT A LOW FAT/CHOLESTEROL/SODIUM DIET: This diet may help reduce your chances of having a heart attack. LIFTING: With affected extremity: Avoid bending, pushing off and lifting more than 2 pounds for 24 hours The following 48 hours, avoid lifting anything more than 5 pounds Avoid strenuous activity or repetitive motions ACTIVITY: You may walk or climb stairs as tolerated You can resume sexual activity as tolerated In general, you are encouraged to engage in a minimum of 30 minutes or more of moderate intensity physical activity, such as brisk walking, daily or at least 3 -4 times weekly BATHING Do not submerge the site into water (bath tub, hot tub, swimming pool, dishes) for 1 week. This can be a source for infection into the blood stream. You may shower after 24 hours SITE CARE: After 24 hours, you may remove the dressing and leave the site open to air. Keep the site clean and dry. Clean gently and pat dry. You can expect bruising and tenderness that gradually resolve within a week or two. Return to work as instructed per your physician Resume driving as instructed per physician Keep all scheduled follow up appointments Resume medications as instructed IMPORTANT: If prescribed a Platelet Aggregation Inhibitor such as, Plavix, Brilinta or Effient: Duration of therapy is minimum one year These medications are often used in combination with Aspirin in prevention of future heart attacks Never discontinue unless consult with your Physician Practice Market Manager STROKE (CVA) Risk factors for a stroke are: Age, cigarette smoking, diabetes, excessive alcohol consumption, family history, high blood pressure, overweight, physical inactivity, prior stroke, heart attack, diagnosis of carotid artery stenosis or other artery disease. Warning signs: Sudden numbness or weakness of the face, arm or leg; especially on one side of the body, sudden confusion, trouble speaking or understanding, sudden trouble seeing in one or both eyes, sudden trouble walking, dizziness, loss of balance or coordination, sudden severe headache with no cause. Call 911 or go to the Emergency Room. CONGESTIVE HEART FAILURE: If you have been diagnosed with Congestive Heart Failure (CHF) and your symptoms return, make an appointment with your physician Weigh yourself daily. Notify your physician if you have a weight gain of two or more pounds in one day or five or more pounds in one week. If you experience any difficulty breathing, please call 911 BLEEDING: Although the risk of bleeding is minimal, it can happen. If you have any bleeding from the site, apply firm pressure above the puncture site for 10-15 minutes. If the bleeding does not stop, continue manual pressure and call 911 Contact [facility] ( ) if: You develop a fever greater than 101 degrees Fahrenheit Your site becomes reddened or has any drainage You have an increase in pain or burning at the site or if a large knot forms at the site. If you experience chest pain, shortness of breath, dizziness, or extreme tiredness, stop the activity and rest. Please notify [facility] office if you experience any of these symptoms and they are not relieved by rest please call 911! Referrals: Antonietta Busch CNP [Primary Care Provider] - Prescriptions: Ticagrelor [Brilinta] 90 mg PO BID #60 tablet
--- NOTE | 2017-05-26 10:24 | Discharge Summary ---
Date of Encounter: 05/26/17 Time of Encounter: 10:30 - Discharge Diagnosis (1) ACS (acute coronary syndrome) Priority: Primary Status: Acute (2) Chest pain Priority: Primary Status: Acute Qualifiers: Chest pain type: chest pain due to myocardial ischemia Ischemic chest pain type: stable angina pectoris Qualified Code(s): I20.8 - Other forms of angina pectoris (3) HTN (hypertension) Priority: Primary Status: Acute Qualifiers: Hypertension type: essential hypertension Qualified Code(s): I10 - Essential (primary) hypertension (4) CKD (chronic kidney disease) stage 2, GFR 60-89 ml/min Priority: Secondary Status: Acute - Discharge Medications Prescriptions: Atorvastatin [Lipitor] 40 mg PO HS #30 tablet Lisinopril [Zestril] 5 mg PO DAILY #30 tablet Ticagrelor [Brilinta] 90 mg PO BID #60 tablet Home Medications: Amlodipine Besylate 10 mg PO DAILY 07/04/16 [History] hydroCHLOROthiazide [Hydrochlorothiazide] 25 mg PO DAILY 07/04/16 [History] Aspirin 81 mg PO DAILY #30 tab.chew 07/18/16 [Rx] Ferrous Sulfate [Iron] 325 mg PO DAILY 05/24/17 [History] Metoprolol [Lopressor] 50 mg PO BID 05/24/17 [History] cloNIDine HCl [CloNIDine HCl] 0.1 mg PO QPM 05/24/17 [History] Atorvastatin [Lipitor] 40 mg PO HS #30 tablet 05/26/17 [Rx] Lisinopril [Zestril] 5 mg PO DAILY #30 tablet 05/26/17 [Rx] Ticagrelor [Brilinta] 90 mg PO BID #60 tablet 05/26/17 [Rx] Allergies/Adverse Reactions: 3 Allergy/AdvReac Type Severity Reaction Status Date / Time dexamethasone [From Decadron] AdvReac Chest Pain Verified 05/24/17 09:36 Procedures/tests Complete & Pending: Procedures Performed prior 72 hours Category Date Time Status CL Cardiac Catheterization [CL] Routine Fisher Mussel 05/25/17 12:00 Ordered ECG 12 lead ECG [ECG] Routine Y 05/24/17 09:13 Completed ECG 12 lead ECG [ECG] Routine Y 05/25/17 16:12 Completed ECG 12 lead ECG [ECG] Routine Y 12/21/17 17:21 Completed Date of admission: 05/24/17 10:14 Primary care physician: Antonietta Busch CNP Consults: 05/24/17 13:05 Consult to Cardiology [CONS] Routine Comment: Consulting Provider: Fernando Rogers Reason for Consult: CP Time Notified: 13:06 Call Completed: Yes 05/26/17 09:21 Consult to Cardiac Rehabilitation-Phase1 [CONS] Routine Comment: Reason for Consult: s/p PCI Call Completed: No - Patient Status Disposition: Home, Self-Care Condition: Good Overall status at discharge: patient is back to baseline - Discharge Instructions Follow Up With: Antonietta Busch CNP [Primary Care Provider] - Additional Instructions: RISK FACTORS: STOP SMOKING: If you smoke, STOP. Smoking or tobacco use significantly increases your risk of heart disease because nicotine causes the arteries to narrow or constrict. It also causes fats to stick to the artery. Your chances of having a heart attack are greatly increased if you continue to smoke. For more information, call the education line for smoking cessation 4-370-[id number] EAT A LOW FAT/CHOLESTEROL/SODIUM DIET: This diet may help reduce your chances of having a heart attack. LIFTING: With affected extremity: Avoid bending, pushing off and lifting more than 2 pounds for 24 hours The following 48 hours, avoid lifting anything more than 5 pounds Avoid strenuous activity or repetitive motions ACTIVITY: You may walk or climb stairs as tolerated You can resume sexual activity as tolerated In general, you are encouraged to engage in a minimum of 30 minutes or more of moderate intensity physical activity, such as brisk walking, daily or at least 3 -4 times weekly BATHING Do not submerge the site into water (bath tub, hot tub, swimming pool, dishes) for 1 week. This can be a source for infection into the blood stream. You may shower after 24 hours SITE CARE: After 24 hours, you may remove the dressing and leave the site open to air. Keep the site clean and dry. Clean gently and pat dry. You can expect bruising and tenderness that gradually resolve within a week or two. Return to work as instructed per your physician Resume driving as instructed per physician Keep all scheduled follow up appointments Resume medications as instructed IMPORTANT: If prescribed a Platelet Aggregation Inhibitor such as, Plavix, Brilinta or Effient: Duration of therapy is minimum one year These medications are often used in combination with Aspirin in prevention of future heart attacks Never discontinue unless consult with your Front Desk Monitor STROKE (CVA) Risk factors for a stroke are: Age, cigarette smoking, diabetes, excessive alcohol consumption, family history, high blood pressure, overweight, physical inactivity, prior stroke, heart attack, diagnosis of carotid artery stenosis or other artery disease. Warning signs: Sudden numbness or weakness of the face, arm or leg; especially on one side of the body, sudden confusion, trouble speaking or understanding, sudden trouble seeing in one or both eyes, sudden trouble walking, dizziness, loss of balance or coordination, sudden severe headache with no cause. Call 911 or go to the Emergency Room. CONGESTIVE HEART FAILURE: If you have been diagnosed with Congestive Heart Failure (CHF) and your symptoms return, make an appointment with your physician Weigh yourself daily. Notify your physician if you have a weight gain of two or more pounds in one day or five or more pounds in one week. If you experience any difficulty breathing, please call 911 BLEEDING: Although the risk of bleeding is minimal, it can happen. If you have any bleeding from the site, apply firm pressure above the puncture site for 10-15 minutes. If the bleeding does not stop, continue manual pressure and call 911 Contact [facility] ( ) if: You develop a fever greater than 101 degrees Fahrenheit Your site becomes reddened or has any drainage You have an increase in pain or burning at the site or if a large knot forms at the site. If you experience chest pain, shortness of breath, dizziness, or extreme tiredness, stop the activity and rest. Please notify [facility] office if you experience any of these symptoms and they are not relieved by rest please call 911! - Diet and Activity Activity: resume usual activities as tolerated Diet: low salt diet Hospital course: Ms. Kunz is a 51 year old female with past medical history hypertension who presented to us from her PCPs office she had elevated blood pressure. Blood pressure was upwards 200s systolic. She had midsternal chest pain also. She was admitted for hypertensive emergency. She was seen by cardiology for chest pain. History that includes family as well as hypertension and obesity she was taken for left heart catheterizaton with drug-eluting stent placed to the proximal LAD. Her blood pressure was managed with oral meds. We have added lisinopril. She was optimized on cardiac medications. She was already on a baby aspirin. [place] was added. She was discharged on 05/26 2017 with follow-up to her primary care physician as well as cardiology. - Time Spent with Patient Total time spent providing and/or coordinating discharge services: Greater than 30 minutes - Constitutional Vitals: Temp Pulse Resp BP Pulse Ox 98.4 F 84 14 135/83 97 05/26/17 06:50 05/26/17 06:50 05/26/17 06:50 05/26/17 06:50 05/26/17 06:50 General appearance: Present: A&O X 3 Exam: GEN: NAD CVS: RRR. S1, S2, No m/r/g RESP: CTAB ABD: Soft, NT, ND, +BS EXT: No edema. 2+ DP. No rashes NEURO: Nonfocal
--- NOTE | 2017-05-26 18:21 | Electrocardiograph Report ---
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
--- NOTE | 2017-05-26 18:21 | Electrocardiograph Report ---
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
== END 2017-05-26 12:10 | disposition home or self-care (01) ==
LOC: 3ANU 08:45 → EMEROO 08:45 → 3ANU 10:42 → 3BNU 05-25 15:56 → 3ANU 05-25 16:28
PROVIDERS: ADMIT Internal Medicine; ATTEND Family Medicine